=== PATIENT | female | born 1950 | race Caucasian/White ===

== ENCOUNTER 2017-01-29 11:54 | Inpatient (IN) | payer OTHER ==
[~2017-01-29] VITALS: Ht 167.6 cm; Wt 50.0 kg
[2017-01-29] MEDS ORDERED: IPRATROPIUM (NEB) 0.5 MG/2.5 ML AMP INH STA (12:17)
[2017-01-29] MEDS ORDERED: ALBUTEROL 0.5% (NEB) 2.5 MG/0.5 ML AMP INH STA (12:17)
[2017-01-29 12:18] VITALS: TEMP 98.3
[2017-01-29 12:49] LABS: ADD SCAN DIFF NO
[2017-01-29 12:54] LABS: ABNORMAL IP MESSAGE 1; BASOPHILS % 0.1 % (0.0-2.0); HEMATOCRIT 52.4 % (37.0-47.0); HEMOGLOBIN 16.2 g/dl (12.0-16.0); LYMPHOCYTES # 0.3 10^3/ul (0.8-2.9); LYMPHOCYTES % 4.9 % (15.0-51.0); MEAN CORPUSCULAR HEMOGLOBIN 31.2 pg (29.0-33.0); MEAN CORPUSCULAR HGB CONC 30.9 g/dl (32.0-37.0); MEAN PLATELET VOLUME 10.6 fl (7.4-10.4); MONOCYTE # 0.5 10^3/ul (0.3-0.9); MONOCYTES % 7.5 % (0.0-11.0); NEUTROPHIL # 5.9 10^3/ul (1.6-7.5); NEUTROPHILS % 87.1 % (39.0-77.0); NUCLEATED RED BLOOD CELLS # 0.1 10^3/ul (0.0-0.0); PLATELET COUNT 237 10^3/UL (140-415); RED BLOOD COUNT 5.19 10^6/ul (4.20-5.40); WHITE BLOOD COUNT 6.8 10^3/ul (4.8-10.8)
--- NOTE | 2017-01-29 13:04 | RADRPT ---
PROCEDURE: Chest x-ray CLINICAL INDICATION: Shortness of breath TECHNIQUE: Chest single view COMPARISON: None FINDINGS: There is mild cardiomegaly and atherosclerotic aortic calcification. Pulmonary vessels are mildly p rominent. There is more patchy density in the left lower lobe suspicious for an evolving area of pn eumonia. Trace left pleural effusion is seen. Bones are osteopenic. There is ORIF left humerus. IMPRESSION: 1. cardiomegaly with mild interstitial CHF. 2. More patchy dense in the left lower lobe is suspicious for pneumonia. 3. Trace left pleural effusion. 4. Osteopenia. 5. ORIF proximal left humerus RPTAT: HH .Aston Kumar MD, Date Time Electronically viewed and signed by .Aston Kumar MD, on 01/29/2017 13:03 .W/
[2017-01-29 13:18] LABS: AADO2 Arterial 439.5 mmHg (7.0-24.0); Arterial Base Excess 5.5 mmol/L (-3.0-3); Arterial COHb 4.5 % (0.0-3.0); Arterial Fraction of Oxyhgb 94.1 % (93.0-99.0); Arterial MetHb 0.5 % (0.0-1.5); Arterial Total Hemglobin 16.9 g/dl (12.0-18.0); MODE MASK - NRB
[2017-01-29] MEDS ORDERED: LEVOFLOXACIN 750MG/D5W (PMX) 150 ML IVPB ONE (13:30)
[2017-01-29] MEDS ORDERED: BENA10TA48 PO (13:43)
[2017-01-29] MEDS ORDERED: AMLO-147 PO (13:43)
[2017-01-29] MEDS ORDERED: ASPI-664 PO (13:44)
--- NOTE | 2017-01-29 13:49 | RADRPT ---
PROCEDURE: CT Brain without contrast. CLINICAL INDICATION: Trauma. Headache and altered level of consciousness. TECHNIQUE: A CT of the brain without contrast was performed utilizing axial sections from the skul l base through the vertex. The patient was scanned without intravenous contrast enhancement. Sagitta l and coronal reformatted images were obtained using the data from the axial images. Total exam DLP is 634.23 mGy-cm. CTDIvol is 39.49 mGy. One or more of the following dose reduction techniques we re used: Automated exposure control, adjustment of the mA and/or kV according to patient size, use o f iterative reconstruction technique. COMPARISON: None available FINDINGS: There is normal quinn-white matter differentiation. There is mild enlargement of the ventricles and subarachnoid spaces consistent with atrophy. There is decreased attenuation of the periventricular white matter consistent with microangiopathic ischemic change. There is no intracranial hemorrhage or space-occupying lesion. There are vascular calcifications consistent with atherosclerosis. There is no skull fracture or lytic lesion. IMPRESSION: 1. Mild atrophy. 2. Microangiopathic ischemic change. 3. Atherosclerosis. 4. Otherwise unremarkable noncontrast CT scan of the brain. RPTAT: QQ .Yony Carey MD, MD Date Time Electronically viewed and signed by .Yony Carey MD, on 01/29/2017 13:48 .R/
--- NOTE | 2017-01-29 14:22 | ERA ---
ER Documentation Chief Complaint Date/Time DATE: 01/29/17 TIME: 1210 Chief Complaint found by boss at home missing for a few days. altered and confused, HPI 66-year-old female brought to the emergency department by ambulance for confusion. Patient provides little to no insight into her presentation with most of my history available from the paramedics and her friend to confirm history. Patient was last seen normal approximately 3-4 days ago. Since then, she did not show up to work. When she did not show up to work this morning, her boss called and went to her home where she was found confused after an apparent fall. The details or timing of the fall are completely unclear. The paramedics were called immediately thereafter. I have reviewed the limited radiology technician pre-hospital care. Pre-hospital vital signs were reviewed. Pre-hospital diagnostic tests were reviewed. Upon arrival, patient has no insight into her presentation and provides no further history. ROS All systems reviewed and are negative except as per history of present illness. Medications Home Meds Reported Medications Aspirin (Low Dose Aspirin) 81 Mg Tablet.dr, 81 MG PO DAILY, #30 TAB 01/29/17 Benazepril Hcl* (Benazepril Hcl*) 10 Mg Tablet, 10 MG PO DAILY, #30 TAB 01/29/17 Amlodipine Besylate* (Amlodipine Besylate*) 10 Mg Tablet, 10 MG PO DAILY, #30 TAB 01/29/17 Allergies Allergies: Coded Allergies: No Known Allergy (Unverified , 01/29/17) PMhx/Soc Hx Respiratory Disorders: Yes (COPD) Hx Alcohol Use: No Hx Substance Use: No Hx Tobacco Use: No Smoking Status: Never smoker FmHx Unknown at this time Physical Exam Vitals Vital Signs Date Time Temp Pulse Resp B/P Pulse Ox O2 Delivery O2 Flow Rate FiO2 01/29/17 13:50 92 100 60 01/29/17 12:20 Simple Mask 8 01/29/17 12:18 98.3 99 21 123/81 88 Nasal Cannula 6.0 01/29/17 11:59 98.0 51 26 138/83 Physical Exam GENERAL: Patient is an elderly confused appearing female. HEENT: Pupils equal, round, and reactive to light. EOMI. There is no scleral icterus. No obvious head trauma NECK: C-spine is soft and supple, there is no meningismus. There is no cervical lymphadenopathy. LUNGS: Clear to auscultation bilaterally. There are no rales, wheezes or rhonchi. No obvious tachypnea, retractions or use of accessory muscles HEART: Regular rate and rhythm, no murmurs, clicks, rubs or gallops. ABDOMEN: Soft, non-tender, non-distended. There are bowel sounds in all four quadrants. No rebound or guarding. EXTREMITIES: There is no peripheral cyanosis or edema. No focal swelling or erythema. NEURO: Patient is awake alert and follows commands. She has no insight into her presentation. She has a nonfocal cranial nerve, motor and sensory examination SKIN: There is no apparent rash or petechiae. HEME/LYMPHATIC: There is no evidence of excessive bruising or lymphedema. PSYCHIATRIC: The patient does not appear anxious or depressed. Result Diagram: 01/29/17 1215 Results 24 hrs Laboratory Tests Test 01/29/17 12:15 01/29/17 12:17 Basophils # 0.010^3/ul Basophils % 0.1% Eosinophils # 0.010^3/ul Eosinophils % 0.0% Hematocrit 52.4% Hemoglobin 16.2g/dl Lymphocytes # 0.310^3/ul Lymphocytes % 4.9% Mean Corpuscular Hemoglobin 31.2pg Mean Corpuscular Hemoglobin Concent 30.9g/dl Mean Corpuscular Volume 101.0fl Mean Platelet Volume 10.6fl Monocytes # 0.510^3/ul Monocytes % 7.5% Neutrophils # 5.910^3/ul Neutrophils % 87.1% Nucleated Red Blood Cells # 0.110^3/ul Nucleated Red Blood Cells % 1.0/100WBC Platelet Count 29527^3/UL Red Blood Count 5.1910^6/ul Red Cell Distribution Width 15.0% White Blood Count 6.810^3/ul Arterial Blood HCO3 37.0mmol/L Arterial Blood Base Excess 5.5mmol/L Arterial Blood Oxygen Saturation 99.1mmHG Rachid Test N/A Arterial Blood Gas Puncture Site Right Brachial Arterial Blood Carboxyhemoglobin 4.5% Arterial Blood Date Drawn 01/29/2017 1:10:26 PM Arterial Blood Methemoglobin 0.5% Arterial Blood pCO2 (Temp correct) 87.9mmhg Arterial Blood pH (Temp corrected) 7.242 Arterial Blood pO2 (Temp corrected) 185.6mmHG Blood Gas A-a O2 Differential 439.5mmHg Blood Gas Critical Value Read Back DR LIZA Gaitan Blood Gas Modality MASK - NRB Blood Gas Notified Time 01/29/2017 1:18:22 PM Blood Gas Notified Whom JLD Blood Gas Specimen Source Blood arterial Blood Gas Temperature 37.0C FiO2 100.0% Oxyhemoglobin Percent 94.1% Total Hemoglobin 16.9g/dl Current Medications Medications (Trade) Dose Ordered Sig/Latanya Route PRN Reason Start Time Stop Time Status Last Admin Dose Admin Albuterol (Proventil 0.5% (Neb)) 5 mg ONCE STAT INH 01/29/17 12:17 01/29/17 12:19 DC Ipratropium [place] 0.5 mg 0.5 mg ONCE STAT INH 01/29/17 12:17 01/29/17 12:19 DC Levofloxacin/ Dextrose (Levaquin 750 Mg/ D5W 150 ml (Pmx)) 150 ml @ 100 mls/hr ONCE ONCE IVPB 01/29/17 13:30 01/29/17 14:59 Procedures/MDM Patient was taken to a room, seen and evaluated. Comfort measures were initiated. Patient significant hypoxemia was noted and after confirmation with blood gas, patient was placed on BiPAP Diagnostic tests were ordered and reviewed. 3 LEAD RHYTHM STRIP: Normal sinus rhythm without ectopy 12 lead EKG interpreted by myself: Rate/rhythm: Normal sinus rhythm Divide/intervals: Normal Ischemia: Nonspecific ST and T-wave changes with no ST elevation Impression: Nonspecific EKG RADIOLOGY: reviewed with the radiologist CONSULTATION: hospitalist was notified for admission REEVALUATION: After BiPAP was initiated, patient's mental status seemed to improve and her hypoxia was improved as well. Patient remained hemodynamically stable MEDICAL DECISION MAKIN-year-old presents to the emergency department confused. Differential diagnosis entertained was broad and potential high acuity. At this time, patient's clinical examination shows evidence of a hypercarbic encephalopathy. Patient has no definitive pneumonia, but given her high risk, I am covering her with antibiotics. In regards to her fall, the CT scan is ruled out significant intracranial injury. At this time, patient will require admission to the hospital for further non-invasive ventilatory support, following of her blood gases, bronchodilator therapy if needed and further treatment. CRITICAL CARE: Time:>35 minutes Patient has a significant chance of clinical deterioration Treatments/Evaluations: Close monitoring and treatment of unstable vital signs, cardiorespiratory, and neurologic status, while maintaining tight balance of fluid, respiratory, and cardiac interventions. Departure Diagnosis: Primary Impression: Encephalopathy acute Additional Impression: Acute respiratory failure with hypoxia and hypercarbia Condition: Serious SAUNDRA DE JESUS Jan 29, 2017 14:22
[2017-01-29] MEDS ORDERED: DOCUSATE SODIUM 100 MG CAP PO PRN (14:30)
[2017-01-29] MEDS ORDERED: ONDANSETRON 4 MG INJ IV PRN (14:30)
[2017-01-29] MEDS ORDERED: FUROSEMIDE 40 MG INJ IV SCH (14:30)
[2017-01-29] MEDS ORDERED: ALBUTEROL/IPRATROPIUM (NEB) 3 ML AMP HHN PRN (14:30)
[2017-01-29 14:54] LABS: ALBUMIN 3.1 g/dl (3.3-4.9)
[2017-01-29 14:57] LABS: BILIRUBIN,INDIRECT 0.3 mg/dl (0-1.1); BILIRUBIN,TOTAL 0.3 mg/dl (0.2-1.3); CREATININE 0.76 mg/dl (0.44-1.00)
[2017-01-29 14:58] LABS: CALCIUM 7.6 mg/dl (8.4-10.2)
[2017-01-29 15:02] LABS: POTASSIUM 5.3 mmol/L (3.5-5.1)
[2017-01-29 15:03] LABS: ALBUMIN/GLOBULIN RATIO 1.06
[2017-01-29 15:06] LABS: CK-MB 1.48 ng/ml (0.0-2.4)
[2017-01-29 15:09] LABS: TROPONIN-I 0.054 ng/ml (0.00-0.12)
[2017-01-29 15:24] LABS: INR 1.1; PROTIME 14.2 Sec (12.2-14.2); PT RATIO 1.1
[2017-01-29 15:39] VITALS: PULSE 92
[2017-01-29 15:45] VITALS: Ht 167.6 cm; Wt 50.0 kg
[2017-01-29 16:03] VITALS: PULSE 97
[2017-01-29] MEDS: ALBUTEROL/IPRATROPIUM (NEB) 3 ML AMP HHN SCH ×2 (17:00→20:00)
[2017-01-29 17:03] LABS: AADO2 Arterial 203.8 mmHg (7.0-24.0); Allen Test ACCEPTAB; Arterial Base Excess 2.4 mmol/L (-3.0-3); Arterial COHb 3.5 % (0.0-3.0); Arterial Fraction of Oxyhgb 94.8 % (93.0-99.0); Arterial HCO3 31.8 mmol/L (22.0-26.0); Arterial MetHb 0.5 % (0.0-1.5); Arterial Total Hemglobin 16.5 g/dl (12.0-18.0); Blood Gas PS 6; MODE MASK - BIPAP
--- NOTE | 2017-01-29 17:25 | RADRPT ---
Echocardiogram Report Patient Name: MARY WILL Gender: Female Date: 1950 Study Date: 29-Jan-2017 Counter Maker: Location: E Ref. Physician: EARLINE WELLS Quality: Good Procedures: Transthoracic echocardiogram with complete 2D, M-Mode, and doppler examination. Indications: Congestive Heart Failure. 2D/M Mode Doppler Measurement Value Normal Ranges Measurement Value Normal Ranges LVIDd 2D 4.0 3.5 - 5.6 cm AV Peak [place] 1.3 m/sec LVIDs 2D 3.1 2.1 - 4.1 cm AV Peak PG 6.9 mmHg LVPWd 2D 1.0 0.6 - 1.1 cm LVOT Peak [place] 1.0 m/sec IVSd 2D 1.0 0.6 - 1.1 cm LVOT Peak PG 3.7 mmHg AoR Diam 2D 2.0 2.0 - 3.7 cm MV E Peak [place] 0.7 m/sec EDV 2D 72.0 cm3 MV A Peak [place] 0.8 m/sec ESV 2D 30.3 cm3 MV E/A 0.9 MV Decel Time 197 msec MV Decel [place] 3 MV E/A 0.9 TR Peak [place] 3.1 m/sec TR Peak PG 38.9 mmHg Findings Left Ventricle: Normal left ventricular systolic function. Normal left ventricular wall thickness. Ejection fraction is visually estimated at 60 %. Tissue Doppler/Mitral Doppler indices are consistent with impaired relaxation (Stage I diastolic dysfunction). Right Ventricle: Mild enlargement of right ventricle. Mild right ventricular hypokinesis. Left Atrium: Upper limit of normal left atrial size. Right Atrium: There is mild enlargement of right atrium. Mitral Valve: Mild mitral leaflet calcification. Mild mitral annular calcification. Trace mitral regurgitation. Aortic Valve: Trileaflet aortic valve. Trace aortic valve regurgitation. Tricuspid Valve: Tricuspid valve not well visualized. Estimated peak PA systolic pressure 47 mmHg. There is mild tricuspid regurgitation. Pulmonic Valve: Pulmonic valve not well visualized. There is trace pulmonic regurgitation. Pericardium: Normal pericardium with no significant pericardial effusion. Aorta: Normal aortic root. IVC: Inferior vena cava with poor respiratory collapse, however, patient on ventilator. Conclusions 1.Normal left ventricular systolic function. Normal left ventricular wall thickness. Ejection fraction is visually estimated at 60 %. Tissue Doppler/Mitral Doppler indices are consistent with impaired relaxation (Stage I diastolic dysfunction). 2.Mild enlargement of right ventricle. Mild right ventricular hypokinesis. 3.There is mild enlargement of right atrium. 4.Mild mitral leaflet calcification. Mild mitral annular calcification. Trace mitral regurgitation. 5.Trileaflet aortic valve. Trace aortic valve regurgitation. 6.Tricuspid valve not well visualized. Estimated peak PA systolic pressure 47 mmHg. There is mild tricuspid regurgitation. 7.Inferior vena cava with poor respiratory collapse, however, patient on ventilator. Electronically Signed By: Pako Saha 29-Jan-2017 17:24:36 -0800 Patient Name: MARY WILL Study Date: 29-Jan-2017 [id number]
[2017-01-29] MEDS ORDERED: ACETAZOLAMIDE 500 MG INJ IV ONE (17:30)
[2017-01-29 18:45] LABS: PARTIAL THROMBOPLASTIN TIME 24.4 Sec (25.0-35.0)
--- NOTE | 2017-01-29 19:17 | CONS ---
DATE OF ADMISSION: 01/29/2017 DATE OF CONSULTATION: 01/29/2017 TYPE OF CONSULTATION: Cardiology. REFERRING PHYSICIAN: Guera Wells MD REASON FOR CONSULTATION: Congestive heart failure. CHIEF COMPLAINT: Encephalopathy. HISTORY OF PRESENT ILLNESS: Thank you for this referral. History was obtained from the patient who is a fair historian, extensive review of the chart ____ staff. This is a 66-year-old female, histo ry of COPD, hypertension who was brought in by ambulance due to confusion. Apparently the patient a t this point does not know why she is in the hospital. Per record, she was seen normal only a few d ays ago. She did not show up to work. Her boss got worried, came to home and found her confused. Paramedics were called, brought into the emergency room. The patient's chest x-ray has reportedly s hown congestive heart failure for which currently has ____ drip. The patient also hypoxemic, has be en placed on BiPAP and currently breathing better. Denies any chest pain or pressure to me. Denies any palpitations to me. MEDICATIONS AT HOME: Include: 1. Aspirin. 2. Benazepril. 3. Amlodipine. SOCIAL HISTORY: The patient actively smokes. Drinks but denies any heavy alcohol use. Denies any drug abuse. ALLERGIES: NO KNOWN DRUG ALLERGIES. FAMILY HISTORY: No reported early coronary artery disease. REVIEW OF SYSTEMS: She denied all other except for above mentioned. PHYSICAL EXAMINATION: VITAL SIGNS: Temperature 98.3, heart rate of 97, blood pressure 113/79, respiratory rate of 13, sat urating 100% on BiPAP. She was saturating 88% initially. HEENT: Normocephalic, atraumatic. Pupils are equal. CARDIOVASCULAR: Regular rate and rhythm. Systolic murmur. PULMONARY: Mild wheezes heard. No rhonchi. GASTROINTESTINAL: Soft, nontender. EXTREMITIES: Positive lower extremity edema. NEUROLOGIC: Awake and alert, responds appropriately. Oriented to person and place. Does not know the date exactly though. Knows the year and the month though. PSYCHIATRIC: Appeared to be calm and pleasant. DERMATOLOGIC: No active bleeding site. LABORATORY: ABG shows a pH of 7.24 on admission, ____ of 87, pO2 of 185, ____ of 37. Sodium 137, p otassium 5.3, BUN of 43, creatinine 0.74, glucose of 97. CO2 is 35, ALT of 108, AST of 83. ProBNP of 4910. Troponin 0.054. Albumin 3.1. EKG showed normal sinus rhythm. Nonspecific ST-T abnormalities, inferolateral ischemia. Chest x-ray was personally reviewed which showed mild pulmonary vascular congestion, pleural effusio n. Brain CT shows mild atrophy, microangiopathic ischemic changes, otherwise unremarkable. ASSESSMENT AND PLAN: 1. Congestive heart failure, acute on chronic. Most likely this is secondary to diastolic dysfunct ion, currently ____ and mostly right-sided heart failure. 2. Chronic obstructive pulmonary disease exacerbation. 3. Hypercapnic respiratory failure. Currently on BiPAP, improved. 4. Encephalopathy, probably related to hypercapnic respiratory failure, improved now. 5. Severe chronic obstructive pulmonary disease. 6. History of hypertension, currently stable. 7. Hyperkalemia. 8. Azotemia. RECOMMENDATIONS: The patient has been on BiPAP. Remains on IV Lasix. I will discontinue the IV La six and place her on a dose of Diamox. Follow up labs tomorrow. Follow the renal function. Echoca rdiogram will be ordered. Thyroid function has been ordered. Thank you for this referral. Will continue to follow along with you. Dictated By: FRANKLYN HUSAIN MD AV/TAB Conf#: [id number] DID#: [id number] CC: GUERA WELLS MD;*EndCC*
[2017-01-29 19:52] LABS: CK-MB 1.48 ng/ml (0.0-2.4)
[2017-01-29 19:55] LABS: TROPONIN-I 0.08 ng/ml (0.00-0.12)
[2017-01-29 20:47] LABS: AADO2 Arterial 158.1 mmHg (7.0-24.0); Allen Test ACCEPTAB; Arterial Base Excess 8.9 mmol/L (-3.0-3); Arterial COHb 2.3 % (0.0-3.0); Arterial Fraction of Oxyhgb 96.6 % (93.0-99.0); Arterial HCO3 37.6 mmol/L (22.0-26.0); Arterial MetHb 0.5 % (0.0-1.5); Arterial Total Hemglobin 16.4 g/dl (12.0-18.0); Blood Gas IEPAP 20/8; MODE MASK - BIPAP
--- NOTE | 2017-01-29 21:38 | RADRPT ---
PROCEDURE: XR Right Foot CLINICAL INDICATION: Pain TECHNIQUE: AP, oblique, and lateral radiographs were submitted. COMPARISON: None FINDINGS: Osseous structures: appear well mineralized and intact with no fracture or destructive process iden tified. There is calcaneal spurring at the insertion of the plantar aponeurosis. Joint spaces: are well maintained, with no significant spurring, erosion or joint effusion evident. Soft tissues: appear unremarkable. IMPRESSION: 1. Calcaneal spurring at the insertion of the plantar aponeurosis. 2. Otherwise, unremarkable right foot series. Physician Rafi Date Time Electronically viewed and signed by Physician Rafi on 01/29/2017 21:37 /
--- NOTE | 2017-01-29 22:07 | HP ---
DATE OF ADMISSION: 01/29/2017 PRESENTING COMPLAINT: Altered mentation and severe hypoxia. HISTORY OF PRESENTING COMPLAINT: Ms. Love is a 66-year-old female who was brought into the emergency room via EMS after her boss had gone to check on her because she had not been at work for the last 3 days and found her in her home altered and felt she has sustained a fall. At time the patient's initial arrival, she was unable to give any formal history. She was found to be hypoxic in the ED and immediately managed for acute resp failure and started on BiPAP therapy. When I checked on her later, her mentation was much improved , and even though she still remained mildly confused, she was able to tell me that she hadn't been at work for 2 of the 3 days because she was scheduled to have those days off. However, she thought today was still Sunday, and that's why she did not go to work. She thinks she fell, and she knows she hit her head , but she doesn't know how long she was out for, and she doesn't recall the circumstances surrounding her fall. She denies headaches at this time. She denies any form of chest pain. She denies having fever or being sick prior to the fall, but she does complain of a little bit of pain in her R foot. Evaluation of her right foot does show discoloration on the dorsal surface of her foot just in the area around the base of the 2nd through 4th toes. Other than this, she cannot really verbalize any other symptoms. She does note that the BiPAP mask is uncomfortable for her, but understands she requires it based on her last ABG result. PAST MEDICAL HISTORY: According to report is positive only for high blood pressure and COPD, and the patient does endorse being a chronic smoker. SURGICAL HISTORY: Positive for ORIF to left shoulder and her right wrist surgery. ALLERGIES: THE PATIENT HAS NO KNOWN DRUG ALLERGIES. SOCIAL HISTORY: Chronic smoker but she denies illicit drug use. However, documentation notes heavy alcohol use as well. FAMILY HISTORY: Not obtained at this time as the patient remained on the BiPAP mask but is not likely to be contributory. HOME MEDICATIONS: Per report, patient is on amlodipine and 2 other medications which the nurses will try to obtain the names. PHYSICAL EXAMINATION: VITAL SIGNS: Initially when she first came in, her temperature 98.0, pulse 51, respirations 26, blood pressure 138/83. At time of my initial evaluation, temperature 98.3, pulse 99, respirations 21, blood pressure 123/81. Saturations were 88% on nasal cannula at 6 L but improved to 100% via simple mask on BiPAP with an FIO2 of 60%. GENERAL: When I saw the patient, she looked comfortable on BiPAP support. HEENT: Her head was normocephalic. Pupils were equal and reactive. Oral exam was not done due to the BiPAP mask, but patient was oriented, answering questions appropriately most of the time. NECK: Evaluation of head and neck did not reveal JVD. CHEST: Auscultation of her chest wall revealed severely reduced air entry bilaterally without wheezes, but there was some coarseness to her breath sounds. CARDIOVASCULAR: Her heart sounds are S1 and S2. Variable III/ systolic murmur. ABDOMEN: Soft, nontender, nondistended. EXTREMITIES: Lower extremities were negative for edema. As mentioned earlier, discoloration noted on dorsal surface of R foot. While she had mildly reduced pulses, of note were cyanotic changes in the tips of all fingers and toes, likely from chronic tobacco use. LABORATORY VALUES: Hemoglobin was elevated at 16, likely secondary to hemoconcentration from chronic hypoxia, and her MCHC was low. Platelets were normal. She had a neutrophilia of 87%. Her initial ABG: pH was 7.2, CO2 was at 7.9, O2 was 185, and bicarbonate was low. IMAGING: Head CT showed mild atrophy with microangiopathic ischemic changes as well as atherosclerosis. Chest x-ray showed cardiomegaly, CHF, probable left lower lobe pneumonia, trace left pleural effusion, osteopenia and evidence of ORIF of the proximal left shoulder ASSESSMENT: A 66-year-old female who was found at home altered status post fall for unknown period of time and managed as follows: 1. Hypoxic encephalopathy secondary to #2. 2. Acute hypoxic and hypercapnic respiratory failure with respiratory acidosis , on bilevel positive airway pressure therapy. 3. 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 4. Probable acute left lower lobe pneumonia. 5. Evidence of congestive heart failure on chest x-ray. 6. ____. 7. Chronic tobacco use with probable chronic obstructive pulmonary disease exacerbation. 8. Chronic osteopenia. 9. Report of heavy alcohol use. 10. Probable R foot injury, rule out acute fracture. 11. Left peripheral vascular disease. PLAN: Admit the patient currently to the intensive care unit because she is at risk of acute decompensation. Complete an ACS rule-out, get a 2D echo, pulmonary consult as well as cardiology consult. Empiric antibiotics have been instituted. Continued with gentle diuresis and then we will try to wean her off BiPAP therapy as comfortably as possible. I will also institute both inhaled and intravenous steroids at a low dose, and further interventions will depend on our clinical findings. Blood as well as urine cultures have been obtained. The patient will likely benefit from MRI of the brain, but there was no acute ischemic event that caused the disorientation and probable fall. She will also benefit from an x-ray of her R foot to rule out any fractures down there. I've spoken to her in detail. I'm not sure how much she understands. I have asked and answered questions. Further information and interventions will depend on her clinical findings. Evaluation time / Critical care time was more than 50 minutes. Dictated By: EARLINE WELLS MD, BA/TAB Conf#: [id number] DID#: [id number]
[2017-01-29] MEDS: CEFEPIME 1GM/50 ML (PMX) 50 ML IVPB SCH (22:30)
[2017-01-29] MEDS: FAMOTIDINE 20 MG INJ IV SCH (22:30)
[2017-01-29 23:15] VITALS: BP 109/67; PULSE 98; RESP 14
[2017-01-29 23:24] VITALS: PULSE 89
[2017-01-30] VITALS (23 sets, daily range): BP systolic 79–118; BP diastolic 54–81; PULSE 76–106; RESP 12–20
[2017-01-30] MEDS: ALBUTEROL/IPRATROPIUM (NEB) 3 ML AMP HHN SCH ×6 (00:57→20:38)
[2017-01-30 01:31] LABS: CK-MB 1.07 ng/ml (0.0-2.4)
[2017-01-30 01:35] LABS: TROPONIN-I 0.074 ng/ml (0.00-0.12)
[2017-01-30 04:53] LABS: ADD SCAN DIFF NO
[2017-01-30 05:05] LABS: BASOPHILS % 0.2 % (0.0-2.0); EOSINOPHILS % 0.2 % (0.0-7.0); HEMATOCRIT 47.5 % (37.0-47.0); HEMOGLOBIN 14.4 g/dl (12.0-16.0); LYMPHOCYTES # 0.9 10^3/ul (0.8-2.9); LYMPHOCYTES % 15.5 % (15.0-51.0); MEAN CORPUSCULAR HEMOGLOBIN 30.6 pg (29.0-33.0); MEAN CORPUSCULAR HGB CONC 30.3 g/dl (32.0-37.0); MEAN CORPUSCULAR VOLUME 100.8 fl (82.0-101.0); MEAN PLATELET VOLUME 10.6 fl (7.4-10.4); MONOCYTE # 0.5 10^3/ul (0.3-0.9); MONOCYTES % 9.1 % (0.0-11.0); NEUTROPHIL # 4.2 10^3/ul (1.6-7.5); NEUTROPHILS % 74.8 % (39.0-77.0); NUCLEATED RED BLOOD CELLS% 0.5 /100WBC (0.0-0.0); PLATELET COUNT 177 10^3/UL (140-415); RED BLOOD COUNT 4.71 10^6/ul (4.20-5.40); RED CELL DISTRIBUTION WIDTH 14.7 % (11.5-14.5); WHITE BLOOD COUNT 5.6 10^3/ul (4.8-10.8)
[2017-01-30 06:12] LABS: POTASSIUM 3.9 mmol/L (3.5-5.1)
[2017-01-30 06:15] LABS: CREATININE 0.88 mg/dl (0.44-1.00)
[2017-01-30 06:16] LABS: CALCIUM 8.1 mg/dl (8.4-10.2); CHOL/HDL RATIO 3.9 RATIO; MAGNESIUM 1.9 mg/dl (1.7-2.5)
[2017-01-30 06:30] LABS: IRON 17 ug/dl (35-150)
[2017-01-30 06:40] LABS: TOTAL IRON BINDING CAPACITY 358 ug/dl (241-421)
[2017-01-30 06:42] LABS: THYROID STIMULATING HORMONE 2.17 MIU/L (0.465-4.680)
[2017-01-30 08:48] LABS: AADO2 Arterial 107.4 mmHg (7.0-24.0); Allen Test ACCEPTAB; Arterial Base Excess 8.4 mmol/L (-3.0-3); Arterial COHb 1.5 % (0.0-3.0); Arterial Fraction of Oxyhgb 56.5 % (93.0-99.0); Arterial HCO3 38.8 mmol/L (22.0-26.0); Arterial MetHb 0.2 % (0.0-1.5); Arterial Total Hemglobin 16.1 g/dl (12.0-18.0); MODE NASAL CANNULA
[2017-01-30] MEDS: ASPIRIN (EC) 81 MG TAB PO SCH (09:00)
[2017-01-30] MEDS ORDERED: BENAZEPRIL 10 MG TAB PO SCH (09:00)
[2017-01-30] MEDS ORDERED: AMLODIPINE 10 MG TAB PO SCH (09:00)
[2017-01-30] MEDS: FAMOTIDINE 20 MG INJ IV SCH ×2 (09:05→20:48)
[2017-01-30] MEDS: CEFEPIME 1GM/50 ML (PMX) 50 ML IVPB SCH ×2 (10:00→20:49)
[2017-01-30] MEDS ORDERED: ACETAZOLAMIDE 500 MG INJ IV SCH (12:15)
--- NOTE | 2017-01-30 12:30 | PN ---
DATE: 01/30/2017 CARDIOLOGY FOLLOWUP SUBJECTIVE: The patient with no chest pain or pressure. Breathing has improved. She did have mild shortness of breath. There were no palpitations. MEDICATIONS: Reviewed as per medical reconciliation, personally reviewed. PHYSICAL EXAMINATION: VITAL SIGNS: Temperature 98.8, heart rate of 88, blood pressure 108/55, respiration rate of 18, sat urating 96%. HEENT: Normocephalic, atraumatic. Pupils equal and round. CARDIOVASCULAR: Regular rate and rhythm, systolic murmur. PULMONARY: With mild rhonchi and wheezes. GASTROINTESTINAL: Soft, nontender. EXTREMITIES: Positive edema. NEUROLOGIC: Awake, responds appropriately. PSYCHIATRIC: Appears to be calm. LABORATORY: WBC of 5.6, hemoglobin 14.4, platelets of 177. Sodium 138, potassium 3.9, BUN of 30, c reatinine 0.88, glucose of 81, CO2 is 40. ProBNP of 3350. LDL is 43, HDL of 20. ASSESSMENT AND PLAN: 1. Chronic obstructive pulmonary disease exacerbation. 2. Possible mild congestive heart failure secondary to diastolic dysfunction, heart failure. 3. Severe hypercapnic respiratory failure, currently improved. Currently, off of BiPAP. 4. Hypertension, currently stable. 5. Electrolyte abnormality, hyperkalemia. 6. Dyslipidemia. RECOMMENDATIONS: I will discontinue the amlodipine. I will give the patient a dose of Diamox. [facility] pulmonary consultation. Dictated By: FRANKLYN HUSAIN MD AV/TAB Conf#: [id number] DID#: [id number] CC: EARLINE WELLS MD;*EndCC*
[2017-01-30 16:49] LABS: AADO2 Arterial 207.1 mmHg (7.0-24.0); Allen Test ACCEPTAB; Arterial Base Excess 8.2 mmol/L (-3.0-3); Arterial COHb 1.1 % (0.0-3.0); Arterial Fraction of Oxyhgb 97.6 % (93.0-99.0); Arterial HCO3 34.9 mmol/L (22.0-26.0); Arterial MetHb 0.4 % (0.0-1.5); Arterial Total Hemglobin 15.6 g/dl (12.0-18.0); Blood Gas IEPAP 16/8; Blood Gas PS 8; MODE MASK - BIPAP
--- NOTE | 2017-01-30 17:47 | PN ---
Date/Time of Note Date/Time of Note DATE: 01/30/17 TIME: 17:43 Assessment/Plan VTE Prophylaxis VTE Prophylaxis Intervention: LMWH Lines/Catheters IV Catheter Type (from [facility]): Saline Lock Urinary Cath still in place: No Assessment/Plan Assessment/Plan 1. Hypoxic encephalopathy secondary to #2 : improved 2. Acute hypoxic and hypercapnic respiratory failure with respiratory acidosis, on bilevel positive airway pressure therapy 3. 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 4. Probable acute left lower lobe pneumonia. 5. Congestive heart failure acute diastolic with preserved EF 6. Chronic tobacco use with Chronic obstructive pulmonary disease exacerbation. 7. Chronic osteopenia. 8. Probable PVD 9. Report of heavy alcohol use. 10. L foot pain w/out fracture PLAN: Appreciate cardio input / continue gentle diuresis Pulm consult pending / continue bronchodilator therapy / ?chest CT Continue empiric levaquin Continue to wean bipap F/u MRI findings Supportive care PROPHYLAXIS: Pepcid / lovenox CRITICAL CARE TIME: >35 mins Subjective 24 Hr Interval Summary Free Text/Dictation Patient seen Failed bipap weaning earlier, comfortable on bipap however Exam/Review of Systems Vital Signs Vitals Vital Signs Date Time Temp Pulse Resp B/P Pulse Ox O2 Delivery O2 Flow Rate FiO2 01/30/17 17:04 18 60 01/30/17 16:59 Nasal Cannula 4.0 01/30/17 16:07 80 01/30/17 15:43 98.0 90/54 97 Intake and Output 01/29/17 01/29/17 01/30/17 14:59 22:59 06:59 Intake Total 50 ml Output Total 0 ml Balance 0 ml 50 ml Exam Constitutional: alert, oriented, No distress Head: normocephalic Eyes: PERRL ENMT: other (bipap mask in place) Neck: supple Respiratory: clear to auscultation, diminished breath sounds Cardiovascular: regular rate and rhythm, No murmurs/extra sounds Gastrointestinal: non-tender, soft Extremities: cyanosis, edema Neurological: nl mental status, No confused, No lethargic Results Result Diagram: 01/30/17 0425 01/30/17 0420 Results 24 hrs Laboratory Tests Test 01/29/17 19:20 01/29/17 19:39 01/30/17 01:00 3/7/17 04:20 Creatine Kinase 90 55 Creatine Kinase Index 1.6 1.9 Creatinine Kinase MB (Mass) 1.48 1.07 Troponin I 0.080 0.074 Arterial Blood HCO3 37.6 H Arterial Blood Base Excess 8.9 H Arterial Blood Oxygen Saturation 99.4 H Rachid Test ACCEPTAB Arterial Blood Gas Puncture Site Left Radial Arterial Blood Carboxyhemoglobin 2.3 Arterial Blood Date Drawn 01/29/2017 8:40:27 PM Arterial Blood Methemoglobin 0.5 Arterial Blood pCO2 (Temp correct) 67.7 H Arterial Blood pH (Temp corrected) 7.362 Arterial Blood pO2 (Temp corrected) 195.2 H Blood Gas A-a O2 Differential 158.1 H Blood Gas Actual Respiration Rate 19 Blood Gas IPAP/EPAP Ratio 20/8 Blood Gas Modality MASK - BIPAP Blood Gas Notified Time 01/29/2017 8:47:02 PM Blood Gas Notified Whom BR Blood Gas Respiration Rate 16.0 Blood Gas Specimen Source Blood arterial Blood Gas Temperature 37.0 Blood Gas Tidal Volume 741.0 FiO2 60.0 Oxyhemoglobin Percent 96.6 Total Hemoglobin 16.4 Anion Gap 10 Blood Urea Nitrogen 30 #H Calcium Level 8.1 L Carbon Dioxide Level 40 H Chloride Level 92 L Cholesterol Level 78 L Cholesterol/HDL Ratio 3.9 Creatinine 0.88 Glucose Level 81 HDL Cholesterol 20 L LDL Cholesterol, Calculated 43 Magnesium Level 1.9 Potassium Level 3.9 Sodium Level 138 Thyroid Stimulating Hormone (TSH) 2.170 Triglycerides Level 74 Test 01/30/17 04:25 01/30/17 07:00 01/30/17 16:00 B-Type Natriuretic Peptide 3350 H Basophils # 0.0 Basophils % 0.2 Eosinophils # 0.0 Eosinophils % 0.2 Free Thyroxine 1.16 Hematocrit 47.5 H Hemoglobin 14.4 Hemoglobin A1c 5.6 Iron Level 17 L Lymphocytes # 0.9 Lymphocytes % 15.5 Mean Corpuscular Hemoglobin 30.6 Mean Corpuscular Hemoglobin Concent 30.3 L Mean Corpuscular Volume 100.8 Mean Platelet Volume 10.6 H Monocytes # 0.5 Monocytes % 9.1 Neutrophils # 4.2 Neutrophils % 74.8 Nucleated Red Blood Cells # 0.0 Nucleated Red Blood Cells % 0.5 H Percent Iron Saturation 5 L Platelet Count 177 # Red Blood Count 4.71 Red Cell Distribution Width 14.7 H Total Iron Binding Capacity 358 White Blood Count 5.6 Arterial Blood HCO3 38.8 H 34.9 H Arterial Blood Base Excess 8.4 H 8.2 H Arterial Blood Oxygen Saturation 57.5 L 99.1 H Rachid Test ACCEPTAB ACCEPTAB Arterial Blood Gas Puncture Site LB Left Radial Arterial Blood Carboxyhemoglobin 1.5 1.1 Arterial Blood Date Drawn 01/30/2017 8:30:09 AM 01/30/2017 4:35:00 PM Arterial Blood Methemoglobin 0.2 0.4 Arterial Blood pCO2 (Temp correct) 80.8 *H 55.5 H Arterial Blood pH (Temp corrected) 7.299 *L 7.416 Arterial Blood pO2 (Temp corrected) 33.6 *L 159.7 H Blood Gas A-a O2 Differential 107.4 H 207.1 H Blood Gas Critical Value Read Back L ROMAINE SAHU Blood Gas Modality NASAL CANNULA MASK - BIPAP Blood Gas Notified Time 01/30/2017 8:45:36 AM 01/30/2017 4:49:19 PM Blood Gas Notified Whom ESPINOZA MCINTYRE Blood Gas Specimen Source Blood arterial Blood arterial Blood Gas Temperature 37.0 37.0 FiO2 33.0 60.0 Oxyhemoglobin Percent 56.5 L 97.6 Total Hemoglobin 16.1 15.6 Blood Gas Actual Respiration Rate 21 Blood Gas IPAP/EPAP Ratio 16/8 Blood Gas Pressure Support 8 Blood Gas Respiration Rate 20.0 Medications Medications Current Medications Ondansetron HCl (Zofran Inj) 4 mg Q6H PRN IV NAUSEA AND/OR VOMITING; Start 01/29 at 14:30 Docusate Sodium (Colace) 100 mg BID PRN PO CONSTIPATION; Start 01/29/17 at 14:30 Famotidine 20 mg 20 mg BID IV Last administered on 01/30/17 09:05; Admin Dose 20 MG; Start 01/29/17 at 21:00 Cefepime HCl (Maxipime 1gm/50 ml (Pmx)) 50 ml @ 100 mls/hr Q12 IVPB Last administered on 01/30/17 10:00; Admin Dose 100 MLS/HR; Start 01/29/17 at 21:00 Amlodipine Besylate (Norvasc) 10 mg DAILY PO ; Start 01/30/17 at 09:00 Aspirin (Halfprin) 81 mg DAILY PO ; Start 01/30/17 at 09:00 Benazepril HCl (Lotensin) 10 mg DAILY PO ; Start 01/30/17 at 09:00 Procedures Procedures PROCEDURE: XR Right Foot CLINICAL INDICATION: Pain TECHNIQUE: AP, oblique, and lateral radiographs were submitted. COMPARISON: None FINDINGS: Osseous structures: appear well mineralized and intact with no fracture or destructive process identified. There is calcaneal spurring at the insertion of the plantar aponeurosis. Joint spaces: are well maintained, with no significant spurring, erosion or joint effusion evident. Soft tissues: appear unremarkable. IMPRESSION: 1. Calcaneal spurring at the insertion of the plantar aponeurosis. 2. Otherwise, unremarkable right foot series. Reji Mark Physician Date Time Electronically viewed and signed by Reji Mark Physician on 01/29/2017 21:37 PROCEDURE: Chest x-ray CLINICAL INDICATION: Shortness of breath TECHNIQUE: Chest single view COMPARISON: None FINDINGS: There is mild cardiomegaly and atherosclerotic aortic calcification. Pulmonary vessels are mildly prominent. There is more patchy density in the left lower lobe suspicious for an evolving area of pneumonia. Trace left pleural effusion is seen. Bones are osteopenic. There is ORIF left humerus. IMPRESSION: 1. cardiomegaly with mild interstitial CHF. 2. More patchy dense in the left lower lobe is suspicious for pneumonia. 3. Trace left pleural effusion. 4. Osteopenia. 5. ORIF proximal left humerus RPTAT: HH .Aston Kumar MD, MD Date Time Electronically viewed and signed by .Aston Kumar MD, MD on 01/29/2017 13:03 .W/ CC: SAUNDRA DE JESUS BOLATITO M. Jan 30, 2017 17:47
[2017-01-30] MEDS ORDERED: SOD CHLORIDE 0.9% 100 ML ONE (18:52)
[2017-01-30] MEDS ORDERED: IOHEXOL 300MG/ML 150 ML BTL ONE (18:52)
--- NOTE | 2017-01-30 20:30 | RADRPT ---
PROCEDURE: XR Chest. CLINICAL INDICATION: Shortness of breath TECHNIQUE: Single frontal view of the chest was obtained. COMPARISON: 01/29/2017 FINDINGS: The cardiomediastinal silhouette is normal size. Pulmonary vasculature is within normal limits. Th ere is lung hyperinflation. There is a likely small left pleural effusion. There is hazy increased density at the right base. There is no pneumothorax.. The osseous structures and soft tissues are unremarkable. IMPRESSION: 1. Lung hyperinflation consistent with COPD. 2. Likely small left pleural effusion. 3. Right lower lung atelectasis, versus minimal infiltrate. 4. Improved pulmonary vascular congestion. RPTAT: HBST .Artemio Gomez MD, MD Date Time Electronically viewed and signed by .Artemio Gomez MD, on 01/30/2017 20:30 .T/
[2017-01-30] MEDS: DOCUSATE SODIUM 100 MG CAP PO SCH (20:48)
[2017-01-30] MEDS: SOD FERRIC GLUC COMPLX 125 MG in SOD CHLORIDE 0.9% 100 ML IVPB SCH (20:48)
--- NOTE | 2017-01-30 20:48 | RADRPT ---
PROCEDURE: MR Brain without contrast. CLINICAL INDICATION: Confusion. Evaluate for CVA. TECHNIQUE: An MRI of the brain was performed on a 1.5 harriet scanner utilizing the following sequen dyana: Sagittal T1 weighted, axial T2 weighted, axial FLAIR, coronal GRE, and axial diffusion weighted with ADC mapping. COMPARISON: None FINDINGS: Restricted effusion and associated T2 signal hyperintensity consistent with bilateral watershed dist ribution infarcts .. There is no evidence of intracranial hemorrhage, mass effect, or midline shift . No extra-axial fluid collections are seen. No hypointense signal abnormalities are seen on the GRE images to suggest the presence of blood degr adation products. Extensive patchy and confluent T2 signal hyperintensity throughout the deep white matter and barbra co mpatible with sequelae of chronic microvascular ischemic changes. Mild generalized central cerebral and cerebellar volume loss. The posterior fossa contents, brainstem, seventh - eighth cranial nerve complexes, pituitary axis, o rbits, paranasal sinuses, and left mastoid air cells are unremarkable. Fluid signal within the right mastoid air cells compatible with retained secretions or inflammatory change. Normal flow voids are visible in the proximal intracranial arteries and dural sinuses, indicating pa tency. IMPRESSION: 1. Extensive restricted diffusion and no associated T2 signal hyperintensity consistent with bilater al watershed distribution acute/subacute ischemic infarct. 2. No intracranial hemorrhage, mass effect, or shift. 3. Extensive chronic microvascular ischemic changes in the deep white matter and mild generalized c entral cerebellar and cerebral volume loss. RPTAT:AAJJ Physician Gabriella Date Time Electronically viewed and signed by Physician Gabriella on 01/30/2017 20:47 ORTIZ/
[2017-01-31] VITALS (23 sets, daily range): BP systolic 95–115; BP diastolic 57–70; PULSE 75–93; RESP 15–20
[2017-01-31] MEDS: ALBUTEROL/IPRATROPIUM (NEB) 3 ML AMP HHN SCH ×4 (00:53→13:43)
--- NOTE | 2017-01-31 02:55 | RADRPT ---
PROCEDURE: CT Chest with contrast. CLINICAL INDICATION: Respiratory failure. TECHNIQUE: CT scan of the chest with contrast was performed on a multidetector high-resolution CT scanner. The patient was scanned following the uncomplicated intravenous administration of 100 cc o f Omnipaque-300 contrast. Coronal and sagittal reformatted images were obtained from the axial sour ce images. Images were reviewed on a high-resolution PACS workstation. The total exam CTDI equals 4. 89 mGy and the total exam DLP equals 206.23 mGy-cm. COMPARISON: None available FINDINGS: Bilateral small pleural effusions with compressive atelectasis at the lung bases. Hyperinflation of COPD and moderate to severe changes of centrolobular emphysema. Lungs otherwise substantially xavier r. Cardiomegaly. The mediastinum is unremarkable without evidence for mass or lymphadenopathy. The vascular structur es of the mediastinum are normal in course and caliber. Aortic vascular calcifications and coronary artery calcifications are present. The heart size is normal without evidence for pericardial thick ening or effusion. The axillary regions, subpectoral regions, and supraclavicular regions are all unremarkable. The ricky rounding chest wall is unremarkable. Imaging obtained through the upper abdomen reveals retroperiton eal fluid of the pancreas and small amount of fluid over the liver hand spleen. Findings may repres ent a manifestation of pancreatitis. The surrounding osseous structures are remarkable for an anterior wedge fracture deformity L1 loss o f about 40 50% anterior and central height. There is mild retropulsion of the posterior-superior ma rgin of the vertebral body resulting at least mild spinal stenosis at this level. These findings ar e otherwise age indeterminate. No osteolytic or osteoblastic lesion is detected. IMPRESSION: 1. Bilateral small pleural effusions with compressive atelectasis at the lung bases. 2. Hyperinflation of COPD and moderate to severe changes of centrolobular emphysema. 3. Age indeterminate anterior wedge fracture deformity at L1 with retropulsed fragment resulting in at least mild spinal stenosis. 4. Retroperitoneal fluid over the pancreas, possibly representing manifestation of pancreatitis. 5. Small amount of fluid is also seen over the liver and spleen. RPTAT: UU Reji Stefrankie, Physician Date Time Electronically viewed and signed by Reji Osullivan Physician on 01/31/2017 02:54 RS/
[2017-01-31 06:02] LABS: AADO2 Arterial 201.6 mmHg (7.0-24.0); Allen Test ACCEPTAB; Arterial Base Excess 4.9 mmol/L (-3.0-3); Arterial COHb 0.9 % (0.0-3.0); Arterial Fraction of Oxyhgb 97.9 % (93.0-99.0); Arterial HCO3 32.3 mmol/L (22.0-26.0); Arterial MetHb 0.5 % (0.0-1.5); Arterial Total Hemglobin 15.5 g/dl (12.0-18.0); Blood Gas IEPAP 20/8; MODE MASK - BIPAP
[2017-01-31 07:19] LABS: ALBUMIN 2.7 g/dl (3.3-4.9); POTASSIUM 3.5 mmol/L (3.5-5.1)
[2017-01-31 07:21] LABS: CREATININE 0.71 mg/dl (0.44-1.00)
[2017-01-31 07:22] LABS: BILIRUBIN,INDIRECT 0.3 mg/dl (0-1.1); BILIRUBIN,TOTAL 0.3 mg/dl (0.2-1.3); CALCIUM 8.4 mg/dl (8.4-10.2); TOTAL PROTEIN 5.4 g/dl (6.1-8.1)
[2017-01-31 08:54] LABS: ADD SCAN DIFF NO
[2017-01-31] MEDS: ENOXAPARIN 30 MG/0.3 ML SYG SC SCH (09:01)
[2017-01-31] MEDS: CEFEPIME 1GM/50 ML (PMX) 50 ML IVPB SCH ×2 (09:02→22:30)
[2017-01-31] MEDS: FAMOTIDINE 20 MG INJ IV SCH (09:02)
[2017-01-31] MEDS: DOCUSATE SODIUM 100 MG CAP PO SCH ×2 (09:02→20:08)
[2017-01-31] MEDS: ASPIRIN (EC) 81 MG TAB PO SCH (09:02)
[2017-01-31 09:42] LABS: BASOPHILS % 0.2 % (0.0-2.0); EOSINOPHILS % 0.4 % (0.0-7.0); HEMOGLOBIN 14.6 g/dl (12.0-16.0); LYMPHOCYTES # 0.7 10^3/ul (0.8-2.9); LYMPHOCYTES % 11.6 % (15.0-51.0); MEAN CORPUSCULAR HEMOGLOBIN 30.9 pg (29.0-33.0); MEAN CORPUSCULAR HGB CONC 31.1 g/dl (32.0-37.0); MEAN CORPUSCULAR VOLUME 99.6 fl (82.0-101.0); MEAN PLATELET VOLUME 10.9 fl (7.4-10.4); MONOCYTE # 0.5 10^3/ul (0.3-0.9); MONOCYTES % 8.8 % (0.0-11.0); NEUTROPHIL # 4.4 10^3/ul (1.6-7.5); PLATELET COUNT 161 10^3/UL (140-415); RED BLOOD COUNT 4.72 10^6/ul (4.20-5.40); WHITE BLOOD COUNT 5.6 10^3/ul (4.8-10.8)
--- NOTE | 2017-01-31 14:03 | CONS ---
Date/Time of Note Date/Time of Note DATE: 01/31/17 TIME: 13:59 Assessment/Plan Assessment/Plan Additional Assessment/Plan Assessment and recommendations; 1. Patient admitted for COPD exacerbation with with acute bronchitis. 2. CT scan of chest showing small bilateral pleural effusions. 3. Hypercapnic/hypoxemic respiratory failure with marked clinical improvement. 4. History of hypertension. Patient is doing very well at this point I would recommend discharging her home. Patient would benefit from either Z-Ramiro or Levaquin to be used at least for 5 days in conjunction with a Medrol Dosepak. She should have a full PFT done as an outpatient basis. Also we need to have ambulatory pulse oximetry done to rule out exertional hypoxemia. Smoking cessation was urged to the patient. Consultation Date/Type/Reason Admit Date/Time Jan 29, 2017 at 14:08 Date of Consultation: Jan 31, 2017 Type of Consultation: Pulmonary Reason for Consultation Pulmonary consultation requested for evaluation of severe COPD. History of present illness; patient is a very pleasant 66-year-old white lady who was admitted on the sixth of this month brought in by ambulance after the patient was found confused by her boss upon evaluation here the patient was diagnosed with COPD exacerbation as well as hypercapnic respiratory failure. The patient has been on BiPAP with marked overall clinical improvement. Patient wants to go home now denies any coughing, wheezing sputum production any chest pain. Cording to the patient she never had this kind of episode before. Past medical history; 1. COPD. 2. Hypertension. 3. No other medical illnesses. Medications; were reviewed. Allergies; none. Social history; she still smokes about half a pack a day. Most of alcohol or drug abuse. Family history; patient is . She had 1 son who . Occupational history; patient works for an [employer]. Review of systems; denies any headache, visual changes. Any seizures. Any sinus symptoms. Denies any postnasal drip. Denies any dysphagia, odynophagia or sore throat. Any fever or chills. Denies any chest pain, angina. Patient does complain of chronic dyspnea on exertion. Denies any use of medications at home for COPD. Denies any acid reflux. Any abdominal pain, nausea, vomiting. Denies any melena, hematochezia. Denies any weight loss. General exam; elderly lady, awake alert currently in no distress. Social History Smoking Status: Current every day smoker Exam/Review of Systems Vital Signs Vitals Vital Signs Date Time Temp Pulse Resp B/P Pulse Ox O2 Delivery O2 Flow Rate FiO2 01/31/17 12:11 84 01/31/17 11:33 99 60 01/31/17 11:29 99.0 20 108/70 01/30/17 21:00 Nasal Cannula 4.0 Intake and Output 01/30/17 01/30/17 01/31/17 15:00 23:00 07:00 Intake Total 400 ml 300 ml Balance 400 ml 300 ml Exam HEENT examination; supple neck, no JVD. No lymphadenopathy. Midline trachea. No thyromegaly. Pharynx is clear. Patient is edentulous and wears dentures. Pupils are midsize and reactive to light bilaterally. Extra ocular movements are intact. Chest examination; diminished breath sounds throughout without any added sounds. S1-S2 audible, no murmurs. Regular rhythm. Abdomen examination; soft, nondistended. No organomegaly. Nontender. Bowel sounds audible. Extremity examination; no peripheral edema. Pulses 2+ bilaterally. No clubbing. [employer]W [employer]ER examination; cranial nerves are grossly intact. No motor deficit. Results Result Diagram: 01/31/17 0608 01/31/17 0608 Results 24 hrs Laboratory Tests Test 01/30/17 16:00 01/31/17 06:00 01/31/17 06:08 Arterial Blood HCO3 34.9 H 32.3 H Arterial Blood Base Excess 8.2 H 4.9 H Arterial Blood Oxygen Saturation 99.1 H 99.3 H Rachid Test ACCEPTAB ACCEPTAB Arterial Blood Gas Puncture Site Left Radial Left Radial Arterial Blood Carboxyhemoglobin 1.1 0.9 Arterial Blood Date Drawn 01/30/2017 4:35:00 PM 01/31/2017 5:55:10 AM Arterial Blood Methemoglobin 0.4 0.5 Arterial Blood pCO2 (Temp correct) 55.5 H 58.7 H Arterial Blood pH (Temp corrected) 7.416 7.358 Arterial Blood pO2 (Temp corrected) 159.7 H 161.6 H Blood Gas A-a O2 Differential 207.1 H 201.6 H Blood Gas Actual Respiration Rate 21 17 Blood Gas IPAP/EPAP Ratio 11/07 15/07 Blood Gas Modality MASK - BIPAP MASK - BIPAP Blood Gas Notified Time 01/30/2017 4:49:19 PM 01/31/2017 6:02:40 AM Blood Gas Notified Whom AC Blood Gas Pressure Support 8 Blood Gas Respiration Rate 20.0 16.0 Blood Gas Specimen Source Blood arterial Blood arterial Blood Gas Temperature 37.0 37.0 FiO2 60.0 60.0 Oxyhemoglobin Percent 97.6 97.9 Total Hemoglobin 15.6 15.5 Alanine Aminotransferase (ALT/SGPT) 73 H Albumin 2.7 L Albumin/Globulin Ratio 1.00 Alkaline Phosphatase 52 Anion Gap 10 Aspartate Amino Transf (AST/SGOT) 27 B-Type Natriuretic Peptide 1380 H Basophils # 0.0 Basophils % 0.2 Blood Urea Nitrogen 19 # Calcium Level 8.4 Carbon Dioxide Level 35 H Chloride Level 98 Creatinine 0.71 Direct Bilirubin 0.00 Eosinophils # 0.0 Eosinophils % 0.4 Globulin 2.70 Glucose Level 83 Hematocrit 47.0 Hemoglobin 14.6 Indirect Bilirubin 0.3 Lymphocytes # 0.7 L Lymphocytes % 11.6 L Magnesium Level 2.0 Mean Corpuscular Hemoglobin 30.9 Mean Corpuscular Hemoglobin Concent 31.1 L Mean Corpuscular Volume 99.6 Mean Platelet Volume 10.9 H Monocytes # 0.5 Monocytes % 8.8 Neutrophils # 4.4 Neutrophils % 79.0 H Nucleated Red Blood Cells # 0.0 Nucleated Red Blood Cells % 0.0 Platelet Count 161 Potassium Level 3.5 Red Blood Count 4.72 Red Cell Distribution Width 15.0 H Sodium Level 139 Total Bilirubin 0.3 Total Protein 5.4 L White Blood Count 5.6 Medications Medications Current Medications Ondansetron HCl (Zofran Inj) 4 mg Q6H PRN IV NAUSEA AND/OR VOMITING; Start 01/29 at 14:30 Famotidine 20 mg 20 mg BID IV Last administered on 01/31/17 09:02; Admin Dose 20 MG; Start 01/29/17 at 21:00 Cefepime HCl (Maxipime 1gm/50 ml (Pmx)) 50 ml @ 100 mls/hr Q12 IVPB Last administered on 01/31/17 09:02; Admin Dose 100 MLS/HR; Start 01/29/17 at 21:00 Aspirin (Halfprin) 81 mg DAILY PO Last administered on 01/31/17 09:02; Admin Dose 81 MG; Start 01/30/17 at 09:00 Enoxaparin Sodium 30 mg 30 mg DAILY SC Last administered on 01/31/17 09:01; Admin Dose 30 MG; Start 01/31/17 at 09:00 Ferric Sodium Gluconate Complex/ Sodium Chloride (Ferrlecit/NS) 110 ml @ 100 mls/hr Q24H IVPB Last administered on 01/30/17 20:48; Admin Dose 100 MLS/HR; Start 01/30/17 at 20:00; Stop 02/01/17 at 21:05 Docusate Sodium (Colace) 100 mg BID PO Last administered on 01/31/17 09:02; Admin Dose 100 MG; Start 01/30/17 at 21:00 OFELIA PINA Jan 31, 2017 14:03
--- NOTE | 2017-01-31 17:09 | PN ---
Date/Time of Note Date/Time of Note DATE: 01/31/17 TIME: 16:58 Assessment/Plan VTE Prophylaxis VTE Prophylaxis Intervention: LMWH Lines/Catheters IV Catheter Type (from Nrs): Saline Lock Urinary Cath still in place: No Assessment/Plan Assessment/Plan 1. Hypoxic encephalopathy secondary to #2 : improved 2. Acute hypoxic and hypercapnic respiratory failure with respiratory acidosiss/p bipap: improved 3. 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 4. Severe COPD exacerbation causing #2 5. Congestive heart failure acute diastolic with preserved EF 6. Acute Bilateral watershed strokes 7. L1 fracture (age indeterminate) 8. Probable PVD 9. Report of heavy alcohol use. 10. L foot pain w/out fracture 11. Chronic tobacco use with Chronic obstructive pulmonary disease exacerbation. PLAN: Will get carotid USS / neurology consults for stroke Spoke with neurosurgery re: L1 fractue. Recommends MRI T and L spine Continue empiric levaquin / bronchodilator therapy Continue to wean bipap F/u MRI findings Supportive care PROPHYLAXIS: Pepcid / lovenox CRITICAL CARE TIME: >35 mins Subjective 24 Hr Interval Summary Free Text/Dictation patient doing better and now off bipap. spoke with patient and her sister and we reviewed MRI results Patient's family requesting SW consult to help with resources. Patient has a son who from acute [place] in his 40s. Exam/Review of Systems Vital Signs Vitals Vital Signs Date Time Temp Pulse Resp B/P Pulse Ox O2 Delivery O2 Flow Rate FiO2 01/31/17 16:47 84 01/31/17 15:49 98.0 20 110/70 97 01/31/17 15:29 60 01/30/17 21:00 Nasal Cannula 4.0 Intake and Output 01/30/17 01/30/17 01/31/17 15:00 23:00 07:00 Intake Total 400 ml 300 ml Balance 400 ml 300 ml Exam Constitutional: alert, frail, oriented Psych: No confusion Head: atraumatic, normocephalic Eyes: PERRL ENMT: mucosa pink and moist Neck: supple Respiratory: clear to auscultation, diminished breath sounds Cardiovascular: regular rate and rhythm Gastrointestinal: bowel sounds, non-tender, soft Extremities: cyanosis, No edema Neurological: No focal weakness Results Result Diagram: 01/31/17 0608 01/31/17 0608 Results 24 hrs Laboratory Tests Test 3/8/17 06:00 01/31/17 06:08 Arterial Blood HCO3 32.3 H Arterial Blood Base Excess 4.9 H Arterial Blood Oxygen Saturation 99.3 H Rachid Test ACCEPTAB Arterial Blood Gas Puncture Site Left Radial Arterial Blood Carboxyhemoglobin 0.9 Arterial Blood Date Drawn 01/31/2017 5:55:10 AM Arterial Blood Methemoglobin 0.5 Arterial Blood pCO2 (Temp correct) 58.7 H Arterial Blood pH (Temp corrected) 7.358 Arterial Blood pO2 (Temp corrected) 161.6 H Blood Gas A-a O2 Differential 201.6 H Blood Gas Actual Respiration Rate 17 Blood Gas IPAP/EPAP Ratio 15/07 Blood Gas Modality MASK - BIPAP Blood Gas Notified Time 01/31/2017 6:02:40 AM Blood Gas Notified Whom MH Blood Gas Respiration Rate 16.0 Blood Gas Specimen Source Blood arterial Blood Gas Temperature 37.0 FiO2 60.0 Oxyhemoglobin Percent 97.9 Total Hemoglobin 15.5 Alanine Aminotransferase (ALT/SGPT) 73 H Albumin 2.7 L Albumin/Globulin Ratio 1.00 Alkaline Phosphatase 52 Anion Gap 10 Aspartate Amino Transf (AST/SGOT) 27 B-Type Natriuretic Peptide 1380 H Basophils # 0.0 Basophils % 0.2 Blood Urea Nitrogen 19 # Calcium Level 8.4 Carbon Dioxide Level 35 H Chloride Level 98 Creatinine 0.71 Direct Bilirubin 0.00 Eosinophils # 0.0 Eosinophils % 0.4 Globulin 2.70 Glucose Level 83 Hematocrit 47.0 Hemoglobin 14.6 Indirect Bilirubin 0.3 Lymphocytes # 0.7 L Lymphocytes % 11.6 L Magnesium Level 2.0 Mean Corpuscular Hemoglobin 30.9 Mean Corpuscular Hemoglobin Concent 31.1 L Mean Corpuscular Volume 99.6 Mean Platelet Volume 10.9 H Monocytes # 0.5 Monocytes % 8.8 Neutrophils # 4.4 Neutrophils % 79.0 H Nucleated Red Blood Cells # 0.0 Nucleated Red Blood Cells % 0.0 Platelet Count 161 Potassium Level 3.5 Red Blood Count 4.72 Red Cell Distribution Width 15.0 H Sodium Level 139 Total Bilirubin 0.3 Total Protein 5.4 L White Blood Count 5.6 Medications Medications Current Medications Ondansetron HCl 4 mg 4 mg Q6H PRN IV NAUSEA AND/OR VOMITING; Start 01/29/17 at 14:30 Cefepime HCl (Maxipime 1gm/50 ml (Pmx)) 50 ml @ 100 mls/hr Q12 IVPB Last administered on 01/31/17 09:02; Admin Dose 100 MLS/HR; Start 01/29/17 at 21:00 Aspirin (Halfprin) 81 mg DAILY PO Last administered on 01/31/17 09:02; Admin Dose 81 MG; Start 01/30/17 at 09:00 Enoxaparin Sodium 30 mg 30 mg DAILY SC Last administered on 01/31/17 09:01; Admin Dose 30 MG; Start 01/31/17 at 09:00 Ferric Sodium Gluconate Complex/ Sodium Chloride (Ferrlecit/NS) 110 ml @ 100 mls/hr Q24H IVPB Last administered on 01/30/17 20:48; Admin Dose 100 MLS/HR; Start 01/30/17 at 20:00; Stop 02/01/17 at 21:05 Docusate Sodium (Colace) 100 mg BID PO Last administered on 01/31/17 09:02; Admin Dose 100 MG; Start 01/30/17 at 21:00 Famotidine (Pepcid) 20 mg BID PO ; Start 01/31/17 at 21:00 Procedures Procedures PROCEDURE: CT Chest with contrast. CLINICAL INDICATION: Respiratory failure. TECHNIQUE: CT scan of the chest with contrast was performed on a multidetector high-resolution CT scanner. The patient was scanned following the uncomplicated intravenous administration of 100 cc of Omnipaque-300 contrast. Coronal and sagittal reformatted images were obtained from the axial source images. Images were reviewed on a high-resolution PACS workstation. The total exam CTDI equals 4.89 mGy and the total exam DLP equals 206.23 mGy-cm. COMPARISON: None available FINDINGS: Bilateral small pleural effusions with compressive atelectasis at the lung bases. Hyperinflation of COPD and moderate to severe changes of centrolobular emphysema. Lungs otherwise substantially clear. Cardiomegaly. The mediastinum is unremarkable without evidence for mass or lymphadenopathy. The vascular structures of the mediastinum are normal in course and caliber. Aortic vascular calcifications and coronary artery calcifications are present. The heart size is normal without evidence for pericardial thickening or effusion. The axillary regions, subpectoral regions, and supraclavicular regions are all unremarkable. The surrounding chest wall is unremarkable. Imaging obtained through the upper abdomen reveals retroperitoneal fluid of the pancreas and small amount of fluid over the liver hand spleen. Findings may represent a manifestation of pancreatitis. The surrounding osseous structures are remarkable for an anterior wedge fracture deformity L1 loss of about 40 50% anterior and central height. There is mild retropulsion of the posterior-superior margin of the vertebral body resulting at least mild spinal stenosis at this level. These findings are otherwise age indeterminate. No osteolytic or osteoblastic lesion is detected. IMPRESSION: 1. Bilateral small pleural effusions with compressive atelectasis at the lung bases. 2. Hyperinflation of COPD and moderate to severe changes of centrolobular emphysema. 3. Age indeterminate anterior wedge fracture deformity at L1 with retropulsed fragment resulting in at least mild spinal stenosis. 4. Retroperitoneal fluid over the pancreas, possibly representing manifestation of pancreatitis. 5. Small amount of fluid is also seen over the liver and spleen. RPTAT: [facility] Physician Narda Date Time Electronically viewed and signed by Physician Narda on 01/31/2017 02:54 PROCEDURE: MR Brain without contrast. CLINICAL INDICATION: Confusion. Evaluate for CVA. TECHNIQUE: An MRI of the brain was performed on a 1.5 harriet scanner utilizing the following sequences: Sagittal T1 weighted, axial T2 weighted, axial FLAIR, coronal GRE, and axial diffusion weighted with ADC mapping. COMPARISON: None FINDINGS: Restricted effusion and associated T2 signal hyperintensity consistent with bilateral watershed distribution infarcts .. There is no evidence of intracranial hemorrhage, mass effect, or midline shift. No extra-axial fluid collections are seen. No hypointense signal abnormalities are seen on the GRE images to suggest the presence of blood degradation products. Extensive patchy and confluent T2 signal hyperintensity throughout the deep white matter and barbra compatible with sequelae of chronic microvascular ischemic changes. Mild generalized central cerebral and cerebellar volume loss. The posterior fossa contents, brainstem, seventh - eighth cranial nerve complexes, pituitary axis, orbits, paranasal sinuses, and left mastoid air cells are unremarkable. Fluid signal within the right mastoid air cells compatible with retained secretions or inflammatory change. Normal flow voids are visible in the proximal intracranial arteries and dural sinuses, indicating patency. IMPRESSION: 1. Extensive restricted diffusion and no associated T2 signal hyperintensity consistent with bilateral watershed distribution acute/subacute ischemic infarct. 2. No intracranial hemorrhage, mass effect, or shift. 3. Extensive chronic microvascular ischemic changes in the deep white matter and mild generalized central cerebellar and cerebral volume loss. EARLINE WELLS Jan 31, 2017 17:09
--- NOTE | 2017-01-31 17:44 | RADRPT ---
PROCEDURE: US carotid arteries. CLINICAL INDICATION: Dizziness. Acute cerebrovascular accident. TECHNIQUE: Multiple sonographic images of the carotid arteries and vertebral arteries were obtaine d utilizing quinn scale, duplex, and color-flow imaging. The images were reviewed on a PACS workstati on. COMPARISON: No prior studies are available for comparison. FINDINGS: Evaluation of the right carotid bifurcation region reveals mild atherosclerotic disease. Evaluation of the left carotid bifurcation region reveals mild atherosclerotic disease. There is antegrade flow within the vertebral arteries bilaterally. RIGHT CAROTID MEASUREMENTS: Common Carotid Uavibe84 (cm/sec) Internal Carotid Artery 84 (cm/sec) External Carotid Artery 102 (cm/sec) Vertebral Artery 68 (cm/sec) Internal Carotid/Common Carotid0.9 LEFT CAROTID MEASUREMENTS: Common Carotid Aivksj05 (cm/sec) Internal Carotid Artery 106 (cm/sec) External Carotid Artery 109 (cm/sec) Vertebral Artery 56 (cm/sec) Internal Carotid/Common Carotid1.1 Validated velocity measurements with angiographic measurements. Velocity criteria are extrapolated f rom diameter data as defined by the Society of Radiologists in Ultrasound Consensus Conference. Radi ology 2003; 229;340-346. This study does indirectly reference the measurement of the distal ICA noman meter as the denominator for stenosis measurement. IMPRESSION: 1. Less than 50% stenosis bilaterally in the internal carotid arteries. 2. Normal antegrade flow in the vertebral arteries bilaterally. RPTAT: QQ SRU Consensus Conference Criteria for the Diagnosis of Carotid Artery Stenosis* Degree of Stenosis, % ICA PSV, cm/sec Plaque Estimate, % ICA/CCA PSV Ratio Normal <125 None <2.0 <50 <125 <50 <2.0 50 69 125-230 >50 2.0-4.0 >70 but less than near occlusion >230 >50 <4.0 Near occlusion High, low, or undetectable Visible Variable Total occlusion Undetectable Visible, no detectable lumen Not applicable *Cartoid artery stenosis: quinn-scale and Doppler US diagnosis. Society of Radiologists in Ultrasound Consensus Conference. Radiology 2003; 229: 340-346 .Yony Carey MD, Date Time Electronically viewed and signed by .Yony Carey MD, on 01/31/2017 17:44 .R/
[2017-01-31] MEDS: FAMOTIDINE 20 MG TAB PO SCH (20:08)
[2017-01-31] MEDS: SOD FERRIC GLUC COMPLX 125 MG in SOD CHLORIDE 0.9% 100 ML IVPB SCH (20:10)
--- NOTE | 2017-01-31 20:37 | CONS ---
DATE OF ADMISSION: 01/29/2017 DATE OF CONSULTATION: 01/31/2017 TYPE OF CONSULTATION: Neurological. Thank you, Dr. Salazar, for your kind referral for evaluation of strokes. HISTORY OF PRESENT ILLNESS: The patient is a 66-year-old lady with history of COPD, hypertension, b rought up confused, found to have congestive heart failure and hypoxemia on admission, had bruise on the forehead on admission. She had MRI of the brain which shows presence of bilateral watershed in farcts in [place] radiata. Carotid ultrasound did not show any acute abnormality. The patient's ech ocardiogram shows ejection fraction of 60. The primary note's most current assessment gives severe COPD exacerbation as well. The patient is doing much better on current treatment. MEDICATIONS: Prior to admission: 1. Amlodipine. 2. Benazepril. 3. Aspirin. Currently she is on: 1. Famotidine. 2. Lovenox for DVT prevention. 3. Iron. 4. Aspirin 81. 5. Cefepime. 6. Zofran p.r.n. ALLERGIES: NONE. SOCIAL HISTORY: Cigarette smoker as well as daily alcohol consumer. She takes a couple of vodka wi th orange juice drinks at night. She states that when she does not drink, she is not getting tremul ous or any other withdrawal symptoms. No drug use. FAMILY HISTORY: Coronary artery disease. PHYSICAL EXAMINATION: VITAL SIGNS: Temperature 98.0, pulse 90, respirations 20, blood pressure 110/70. GENERAL: Not in acute distress, lying in bed. HEENT: Normocephalic head. Frontal bruise. NECK: Supple. No meningeal signs. LUNGS: Clear to auscultation bilaterally. CARDIAC: Normal cardiac rhythm and sounds. ABDOMEN: Soft, nontender. EXTREMITIES: No cyanosis, clubbing or edema. NEUROLOGIC: She is awake, alert and oriented x3 with fluent speech. CRANIAL NERVES: Intact visual santamaria bilaterally. Pupils sluggish, about 2 mm bilaterally. Extrao cular movements intact without nystagmus. Symmetrical face. Preserved facial strength and sensatio n. Tongue is in midline. Palate elevates symmetrically. Motor strength examination seemed to be p reserved in all extremities. Normal bulk, tone and strength. Sensory examination grossly intact to light touch and pain. Deep tendon reflexes 2+ upper extremities and knees, absent ankle jerks. Do wngoing toes bilaterally. Coordination preserved on [id number] testing. No dysmetria or trem or. Gait was not assessed. LABORATORY DATA: The patient's labs today show normal CBC. Comprehensive metabolic panel: Bicarbo morro 35, BNP 1300, rest within normal limits. ALT 73, AST 27. Cholesterol 78, LDL 43. Normal PT, PTT. Today's blood gas: pH 7.35, pCO2 56, PO2 161 on BiPAP. IMPRESSION: 1. Transient encephalopathy secondary to hypoxemia. 2. Congestive heart failure. 3. Chronic obstructive pulmonary disease exacerbation. 4. Bilateral watershed infarcts, likely secondary to drop of blood pressure versus hypoxemia. So f ar, I do not see any clinical abnormality, though I did not walk the patient, but otherwise, she kohli s not have any symptoms of the infarct. PT evaluation of gait is reasonable to obtain. 5. History of daily alcohol use. Watch for symptoms and signs of alcohol withdrawal. 6. The patient was found to have L1 fracture. MRI of the brain was done; report is pending. 7. Blunt head trauma with frontal bruise. No complaint of headaches. Continue current treatment. Reasonable to continue aspirin. Thank you very much for this interesting consultation. Dictated By: SHERRY MAJOR/TAB Conf#: [id number] DID#: [id number]
[2017-02-01] VITALS (12 sets, daily range): BP systolic 110–126; BP diastolic 61–74; PULSE 73–101; RESP 16–24
--- NOTE | 2017-02-01 07:19 | PN ---
DATE: 01/30/2017 CARDIOLOGY FOLLOWUP SUBJECTIVE: Discussed with the staff. Discussed with . The patient is on BiPAP overnight. He denies any chest pain or pressure to me. MEDICATIONS: Reviewed. PHYSICAL EXAMINATION: VITAL SIGNS: Temperature 98.1, heart rate of 88, blood pressure 114/63, respiration rate of 16. Sa turating 98%. HEENT: Normocephalic, atraumatic. On BiPAP. CARDIOVASCULAR: Regular rate and rhythm. PULMONARY: Mild wheezes. GASTROINTESTINAL: Soft, nontender. EXTREMITIES: No significant lower extremity edema with decreased lower extremity edema. NEUROLOGIC: Awake, responds appropriately. PSYCHIATRIC: Appears to be calm. LABORATORY: Sodium 139, potassium 3.5, BUN of 19, creatinine of 0.8, bilirubin 171, glucose of 83. ProBNP of 1380, albumin is 2.7. CT of the chest shows bilateral small pleural effusion. Hyperinflation of COPD, moderate to severe changes central lobar emphysema. MRI of the brain shows extensive restricted diffusion with no associated T2 signal hypersensitivity consistent with bilateral watershed distribution acute subacute ischemic infarct. ASSESSMENT AND PLAN: 1. Chronic obstructive pulmonary disease exacerbation. 2. Hypercapnic respiratory failure. 3. Congestive heart failure secondary to diastolic dysfunction, mostly right-sided heart failure, c urrently improved. 4. Cerebrovascular accident. 5. History of alcohol and tobacco use. 6. Hypertension. RECOMMENDATIONS: I have discontinued the blood pressure medications to avoid hypotension. Continue with the aspirin. Respiratory care as per internal medicine and pulmonary. Will ask pulmonary to evaluate the patient as well. Received 2 doses of Diamox already. Will give diuretic as needed onl y at this point. Dictated By: FRANKLYN HUSAIN MD AV/TAB Conf#: [id number] DID#: [id number] CC: EARLINE WELLS MD;*EndCC*
--- NOTE | 2017-02-01 08:14 | RADRPT ---
PROCEDURE: MR Lumbar Spine without contrast. CLINICAL INDICATION: L1 fracture. TECHNIQUE: Multiplanar multisequence MRI of the lumbar spine was performed. COMPARISON: No similar studies are submitted for comparison. CT of the chest, abdomen, and pelvis from January 30, 2017. FINDINGS: There is a normal lumbar lordosis. There is a chronic moderate L1 vertebral body wedge compression fracture with mild retropulsion of t he superior aspect causing mild spinal canal stenosis. Otherwise vertebral body heights are maintai jaylene. There is normal alignment. There is no destructive osseous lesion. There is no abnormal bone marrow edema. There is disk desiccation from L1-L2 to L5-S1. The conus medullaris is at the L1 level. The cauda equina is unremarkable. T12-L1: There is a 1 mm broad-based disk bulge with mild bilateral facet arthropathy without spinal canal stenosis. There is mild left without right foraminal stenosis. L1-L2 : There is a 1 mm broad-based disk bulge without spinal canal stenosis. There is mild bilater al foraminal stenosis. L2-L3 : There is a 2 mm broad-based disk bulge with mild bilateral facet arthropathy without spinal canal stenosis. There is mild right without left foraminal stenosis. L3-L4 : There is a 2 mm broad-based disk bulge with moderate bilateral facet arthropathy and ligamen saira flavum infolding without spinal canal stenosis. There is mild to moderate bilateral foraminal s tenosis. L4-L5 : There is a 2 mm broad-based disk bulge with mild bilateral facet arthropathy without spinal canal stenosis. There is moderate bilateral foraminal stenosis. L5-S1 : There is a 2 mm broad-based disk bulge with mild bilateral facet arthropathy without spinal canal stenosis. There is mild to moderate right with mild left foraminal stenosis. The paraspinal musculature are within normal limits. IMPRESSION: 1. Chronic moderate L1 vertebral body wedge compression fracture of mild retropulsion of the superi or aspect causing mild spinal canal stenosis. 2. No acute compression fracture or abnormal bone marrow edema. 3. Multilevel degenerative changes most pronounced at L4-L5 where there is a broad-based disk bulge with moderate bilateral foraminal stenosis. Further findings as detailed above. RPTAT: PP .Basilio John MD, MD Date Time Electronically viewed and signed by .Basilio John MD, on 02/01/2017 08:13 .F/
--- NOTE | 2017-02-01 08:18 | RADRPT ---
PROCEDURE: MR Thoracic Spine noncontrast. CLINICAL INDICATION: Back pain. TECHNIQUE: Multiplanar multisequence noncontrast MRI of the thoracic spine performed. COMPARISON: There are no similar studies submitted for comparison. FINDINGS: There is preservation of the normal thoracic kyphosis. The thoracic vertebral body heights are maintained. There is normal alignment. There is no destructive osseous lesion.There is no abnormal bone marrow edema. There is multilevel disk desiccation with mild disk space narrowing. The spinal cord is normal is signal. T1-T2: There is no disk herniation, spinal canal, or bilateral foraminal stenosis. T2-T3: There is a 1 mm broad-based disk bulge without spinal canal or bilateral foraminal stenosis. The T3-T4: There is no disk herniation, spinal canal, or bilateral foraminal stenosis. T4-T5: There is no disk herniation, spinal canal, or bilateral foraminal stenosis. T5-T6: There is no disk herniation, spinal canal, or bilateral foraminal stenosis. T6-T7: There is no disk herniation, spinal canal, or bilateral foraminal stenosis. T7-T8: There is no disk herniation, spinal canal, or bilateral foraminal stenosis. T8-T9: There is no disk herniation, spinal canal, or bilateral foraminal stenosis. T9-T10: There is no disk herniation, spinal canal, or bilateral foraminal stenosis. T10-T11: There is no disk herniation, spinal canal, or bilateral foraminal stenosis. T11-T12: There is a 1 mm broad-based disk bulge without spinal canal or bilateral foraminal stenosis . T12-L1: There is a 1 mm broad-based disk bulge with mild bilateral facet arthropathy without spinal canal stenosis. There is mild left without right foraminal stenosis. The paraspinal musculature are within normal limits. There is a moderate right and mild left pleural effusion. IMPRESSION: 1. Mild multilevel degenerative changes without spinal canal or bilateral foraminal stenosis. 2. No acute thoracic compression fracture or abnormal bone marrow edema. 3. Moderate right and mild left pleural effusion. Further findings as detailed above. RPTAT: PP .Basilio John MD, MD Date Time Electronically viewed and signed by .Basilio John MD, on 02/01/2017 08:18 .F/
[2017-02-01] MEDS: CEFEPIME 1GM/50 ML (PMX) 50 ML IVPB SCH ×2 (08:21→22:40)
[2017-02-01] MEDS: DOCUSATE SODIUM 100 MG CAP PO SCH ×2 (08:22→20:32)
[2017-02-01] MEDS: ASPIRIN (EC) 81 MG TAB PO SCH (08:22)
[2017-02-01] MEDS: FAMOTIDINE 20 MG TAB PO SCH ×2 (08:22→20:32)
[2017-02-01] MEDS: ENOXAPARIN 30 MG/0.3 ML SYG SC SCH (08:31)
--- NOTE | 2017-02-01 11:08 | PN ---
Date/Time of Note Date/Time of Note DATE: 02/01/17 TIME: 11:02 Assessment/Plan Lines/Catheters IV Catheter Type (from Nrsg): Saline Lock Urinary Cath still in place: No Assessment/Plan Assessment/Plan 1. Hypoxic encephalopathy secondary to #2 : improved 2. Acute hypoxic and hypercapnic respiratory failure with respiratory acidosiss/p bipap: improved 3. 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 4. Severe COPD exacerbation causing #2 5. Congestive heart failure acute diastolic with preserved EF and Darin pleural effusion R>L 6. 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 L1 fracture Chronic based on MRI 8. Probable PVD 9. Report of heavy alcohol use. 10. L foot pain w/out fracture 11. Chronic tobacco use PLAN: Carotid USS and Neurology recs noted Spoke with neurosurgery re: L1 fractue / reviewed MRI / cleared for PT Continue empiric levaquin / bronchodilator therapy / gentle diuresis per cardio Tobacco cessation counselling done and will continue to be reinforced throughout hospitalization. Supportive care ARU eval PROPHYLAXIS: Pepcid / lovenox Subjective 24 Hr Interval Summary Free Text/Dictation no new complaints we discussed plan of care Exam/Review of Systems Vital Signs Vitals Vital Signs Date Time Temp Pulse Resp B/P Pulse Ox O2 Delivery O2 Flow Rate FiO2 02/01/17 08:25 4.0 02/01/17 08:16 73 02/01/17 07:03 98.3 17 126/73 99 02/01/17 04:19 60 01/31/17 20:15 Nasal Cannula Intake and Output 01/31/17 01/31/17 02/01/17 15:00 23:00 07:00 Intake Total 830 ml 450 ml Output Total 600 ml Balance 230 ml 450 ml Exam Constitutional: alert, frail, oriented Psych: No confusion Head: atraumatic, normocephalic Eyes: PERRL ENMT: mucosa pink and moist Neck: supple Respiratory: clear to auscultation, diminished breath sounds Cardiovascular: regular rate and rhythm Gastrointestinal: bowel sounds, non-tender, soft Extremities: cyanosis, No edema Neurological: No focal weakness Results Result Diagram: 01/31/17 0608 01/31/17 0608 Medications Medications Current Medications Ondansetron HCl 4 mg 4 mg Q6H PRN IV NAUSEA AND/OR VOMITING; Start 01/29/17 at 14:30 Cefepime HCl (Maxipime 1gm/50 ml (Pmx)) 50 ml @ 100 mls/hr Q12 IVPB Last administered on 02/01/17 08:21; Admin Dose 100 MLS/HR; Start 01/29/17 at 21:00 Aspirin (Halfprin) 81 mg DAILY PO Last administered on 02/01/17 08:22; Admin Dose 81 MG; Start 01/30/17 at 09:00 Enoxaparin Sodium 30 mg 30 mg DAILY SC Last administered on 02/01/17 08:31; Admin Dose 30 MG; Start 01/31/17 at 09:00 Ferric Sodium Gluconate Complex/ Sodium Chloride (Ferrlecit/NS) 110 ml @ 100 mls/hr Q24H IVPB Last administered on 01/31/17 20:10; Admin Dose 100 MLS/HR; Start 01/30/17 at 20:00; Stop 02/01/17 at 21:05 Docusate Sodium (Colace) 100 mg BID PO Last administered on 02/01/17 08:22; Admin Dose 100 MG; Start 01/30/17 at 21:00 Famotidine (Pepcid) 20 mg BID PO Last administered on 02/01/17 08:22; Admin Dose 20 MG; Start 01/31/17 at 21:00 Procedures Procedures PROCEDURE: US carotid arteries. CLINICAL INDICATION: Dizziness. Acute cerebrovascular accident. TECHNIQUE: Multiple sonographic images of the carotid arteries and vertebral arteries were obtained utilizing quinn scale, duplex, and color-flow imaging. The images were reviewed on a PACS workstation. COMPARISON: No prior studies are available for comparison. FINDINGS: Evaluation of the right carotid bifurcation region reveals mild atherosclerotic disease. Evaluation of the left carotid bifurcation region reveals mild atherosclerotic disease. There is antegrade flow within the vertebral arteries bilaterally. RIGHT CAROTID MEASUREMENTS: Common Carotid Artery 95 (cm/sec) Internal Carotid Artery 84 (cm/sec) External Carotid Artery 102 (cm/sec) Vertebral Artery 68 (cm/sec) Internal Carotid/Common Carotid 0.9 LEFT CAROTID MEASUREMENTS: Common Carotid Artery 94 (cm/sec) Internal Carotid Artery 106 (cm/sec) External Carotid Artery 109 (cm/sec) Vertebral Artery 56 (cm/sec) Internal Carotid/Common Carotid 1.1 Validated velocity measurements with angiographic measurements. Velocity criteria are extrapolated from diameter data as defined by the Society of Radiologists in Ultrasound Consensus Conference. Radiology 2003; 229;340-346. This study does indirectly reference the measurement of the distal ICA diameter as the denominator for stenosis measurement. IMPRESSION: 1. Less than 50% stenosis bilaterally in the internal carotid arteries. 2. Normal antegrade flow in the vertebral arteries bilaterally. RPTAT: QQ SRU Consensus Conference Criteria for the Diagnosis of Carotid Artery Stenosis* Degree of Stenosis, % ICA PSV, cm/sec Plaque Estimate, % ICA/CCA PSV Ratio Normal <125 None <2.0 <50 <125 <50 <2.0 50 69 125-230 >50 2.0-4.0 >70 but less than near occlusion >230 >50 <4.0 Near occlusion High, low, or undetectable Visible Variable Total occlusion Undetectable Visible, no detectable lumen Not applicable *Cartoid artery stenosis: quinn-scale and Doppler US diagnosis. Society of Radiologists in Ultrasound Consensus Conference. Radiology 2003; 229: 340-346 .Yony Carey MD, MD Date Time Electronically viewed and signed by .Yony Carey MD, MD on 01/31/2017 17:44 .R/ CC: EARLINE WELLS PROCEDURE: MR Lumbar Spine without contrast. CLINICAL INDICATION: L1 fracture. TECHNIQUE: Multiplanar multisequence MRI of the lumbar spine was performed. COMPARISON: No similar studies are submitted for comparison. CT of the chest, abdomen, and pelvis from January 30, 2017. FINDINGS: There is a normal lumbar lordosis. There is a chronic moderate L1 vertebral body wedge compression fracture with mild retropulsion of the superior aspect causing mild spinal canal stenosis. Otherwise vertebral body heights are maintained. There is normal alignment. There is no destructive osseous lesion. There is no abnormal bone marrow edema. There is disk desiccation from L1-L2 to L5-S1. The conus medullaris is at the L1 level. The cauda equina is unremarkable. T12-L1: There is a 1 mm broad-based disk bulge with mild bilateral facet arthropathy without spinal canal stenosis. There is mild left without right foraminal stenosis. L1-L2 : There is a 1 mm broad-based disk bulge without spinal canal stenosis. There is mild bilateral foraminal stenosis. L2-L3 : There is a 2 mm broad-based disk bulge with mild bilateral facet arthropathy without spinal canal stenosis. There is mild right without left foraminal stenosis. L3-L4 : There is a 2 mm broad-based disk bulge with moderate bilateral facet arthropathy and ligamentum flavum infolding without spinal canal stenosis. There is mild to moderate bilateral foraminal stenosis. L4-L5 : There is a 2 mm broad-based disk bulge with mild bilateral facet arthropathy without spinal canal stenosis. There is moderate bilateral foraminal stenosis. L5-S1 : There is a 2 mm broad-based disk bulge with mild bilateral facet arthropathy without spinal canal stenosis. There is mild to moderate right with mild left foraminal stenosis. The paraspinal musculature are within normal limits. IMPRESSION: 1. Chronic moderate L1 vertebral body wedge compression fracture of mild retropulsion of the superior aspect causing mild spinal canal stenosis. 2. No acute compression fracture or abnormal bone marrow edema. 3. Multilevel degenerative changes most pronounced at L4-L5 where there is a broad-based disk bulge with moderate bilateral foraminal stenosis. Further findings as detailed above. RPTAT: PP .Basilio John MD, Date Time Electronically viewed and signed by .Basilio John MD, MD on 02/01/2017 08:13 .F/ CC: EARLINE WELLS. ROCEDURE: MR Thoracic Spine noncontrast. CLINICAL INDICATION: Back pain. TECHNIQUE: Multiplanar multisequence noncontrast MRI of the thoracic spine performed. COMPARISON: There are no similar studies submitted for comparison. FINDINGS: There is preservation of the normal thoracic kyphosis. The thoracic vertebral body heights are maintained. There is normal alignment. There is no destructive osseous lesion.There is no abnormal bone marrow edema. There is multilevel disk desiccation with mild disk space narrowing. The spinal cord is normal is signal. T1-T2: There is no disk herniation, spinal canal, or bilateral foraminal stenosis. T2-T3: There is a 1 mm broad-based disk bulge without spinal canal or bilateral foraminal stenosis. The T3-T4: There is no disk herniation, spinal canal, or bilateral foraminal stenosis. T4-T5: There is no disk herniation, spinal canal, or bilateral foraminal stenosis. T5-T6: There is no disk herniation, spinal canal, or bilateral foraminal stenosis. T6-T7: There is no disk herniation, spinal canal, or bilateral foraminal stenosis. T7-T8: There is no disk herniation, spinal canal, or bilateral foraminal stenosis. T8-T9: There is no disk herniation, spinal canal, or bilateral foraminal stenosis. T9-T10: There is no disk herniation, spinal canal, or bilateral foraminal stenosis. T10-T11: There is no disk herniation, spinal canal, or bilateral foraminal stenosis. T11-T12: There is a 1 mm broad-based disk bulge without spinal canal or bilateral foraminal stenosis. T12-L1: There is a 1 mm broad-based disk bulge with mild bilateral facet arthropathy without spinal canal stenosis. There is mild left without right foraminal stenosis. The paraspinal musculature are within normal limits. There is a moderate right and mild left pleural effusion. IMPRESSION: 1. Mild multilevel degenerative changes without spinal canal or bilateral foraminal stenosis. 2. No acute thoracic compression fracture or abnormal bone marrow edema. 3. Moderate right and mild left pleural effusion. Further findings as detailed above. RPTAT: PP .Basilio John MD, MD Date Time Electronically viewed and signed by .Basilio John MD, MD on 02/01/2017 08:18 .F/ CC: EARLINE WELLS BOLATITO M. Feb 01, 2017 11:08
--- NOTE | 2017-02-01 11:25 | CONS ---
Date/Time of Note Date/Time of Note DATE: 02/01/17 TIME: 11:23 Assessment/Plan Assessment/Plan Additional Assessment/Plan Assessment recommendations; 1. Patient admitted for COPD exacerbation with type II respiratory failure currently doing well. 2. Acute bronchitis. 3. History of hypertension. Continue current treatment. Add Solu-Medrol 40 mg IV every 8 hours. Consultation Date/Type/Reason Admit Date/Time Jan 29, 2017 at 14:08 Initial Consult Date 01/31/17 Type of Consultation: Pulmonary 24 HR Interval Summary Free Text/Dictation Patient's condition is stable. Still complains of cough with scant sputum production. Complains of shortness of breath upon minimal exertion. Denies any fever, chills. Any nausea vomiting. General exam; elderly lady, currently in no distress, awake and alert. Exam/Review of Systems Vital Signs Vitals Vital Signs Date Time Temp Pulse Resp B/P Pulse Ox O2 Delivery O2 Flow Rate FiO2 02/01/17 11:07 98.5 100 24 124/74 90 02/01/17 08:25 4.0 02/01/17 04:19 60 01/31/17 20:15 Nasal Cannula Intake and Output 01/31/17 01/31/17 02/01/17 15:00 23:00 07:00 Intake Total 830 ml 450 ml Output Total 600 ml Balance 230 ml 450 ml Exam HEENT exam; supple neck, no JVD. No lymphadenopathy. Midline trachea. No thyromegaly. No neck masses. Chest examination; poor breath sounds bilaterally with mild wheezing. S1-S2 audible, no murmurs. Regular rhythm. Abdomen examination; soft, nontender. Bowel sounds audible. Extremity examination; no peripheral edema. Next [employer]MINOLOGY examination; no focal deficit. Results Result Diagram: 01/31/17 0608 01/31/17 0608 Medications Medications Current Medications Ondansetron HCl 4 mg 4 mg Q6H PRN IV NAUSEA AND/OR VOMITING; Start 01/29/17 at 14:30 Cefepime HCl (Maxipime 1gm/50 ml (Pmx)) 50 ml @ 100 mls/hr Q12 IVPB Last administered on 02/01/17 08:21; Admin Dose 100 MLS/HR; Start 01/29/17 at 21:00 Aspirin (Halfprin) 81 mg DAILY PO Last administered on 02/01/17 08:22; Admin Dose 81 MG; Start 01/30/17 at 09:00 Enoxaparin Sodium 30 mg 30 mg DAILY SC Last administered on 02/01/17 08:31; Admin Dose 30 MG; Start 01/31/17 at 09:00 Ferric Sodium Gluconate Complex/ Sodium Chloride (Ferrlecit/NS) 110 ml @ 100 mls/hr Q24H IVPB Last administered on 01/31/17 20:10; Admin Dose 100 MLS/HR; Start 01/30/17 at 20:00; Stop 02/01/17 at 21:05 Docusate Sodium (Colace) 100 mg BID PO Last administered on 02/01/17 08:22; Admin Dose 100 MG; Start 01/30/17 at 21:00 Famotidine (Pepcid) 20 mg BID PO Last administered on 02/01/17 08:22; Admin Dose 20 MG; Start 01/31/17 at 21:00 OFELIA PINA Feb 01, 2017 11:25
[2017-02-01 12:23] LABS: ADD SCAN DIFF NO
[2017-02-01 12:29] LABS: ABNORMAL IP MESSAGE 1; BASOPHILS % 0.2 % (0.0-2.0); EOSINOPHILS % 0.5 % (0.0-7.0); HEMATOCRIT 49.2 % (37.0-47.0); HEMOGLOBIN 14.9 g/dl (12.0-16.0); LYMPHOCYTES # 0.4 10^3/ul (0.8-2.9); LYMPHOCYTES % 6.9 % (15.0-51.0); MEAN CORPUSCULAR HEMOGLOBIN 30.5 pg (29.0-33.0); MEAN CORPUSCULAR HGB CONC 30.3 g/dl (32.0-37.0); MEAN CORPUSCULAR VOLUME 100.6 fl (82.0-101.0); MEAN PLATELET VOLUME 10.4 fl (7.4-10.4); MONOCYTE # 0.5 10^3/ul (0.3-0.9); MONOCYTES % 8.2 % (0.0-11.0); NEUTROPHIL # 4.6 10^3/ul (1.6-7.5); NEUTROPHILS % 83.8 % (39.0-77.0); PLATELET COUNT 178 10^3/UL (140-415); RED BLOOD COUNT 4.89 10^6/ul (4.20-5.40); RED CELL DISTRIBUTION WIDTH 15.3 % (11.5-14.5); WHITE BLOOD COUNT 5.5 10^3/ul (4.8-10.8)
[2017-02-01 12:46] LABS: CALCIUM 8.7 mg/dl (8.4-10.2); CREATININE 0.71 mg/dl (0.44-1.00)
[2017-02-01] MEDS: METHYLPREDNISOLONE 40 MG INJ IV SCH ×2 (14:02→22:40)
[2017-02-01] MEDS: NICOTINE (21 MG/24 HR) PATCH TRANSDERM SCH (17:53)
[2017-02-01] MEDS: SOD FERRIC GLUC COMPLX 125 MG in SOD CHLORIDE 0.9% 100 ML IVPB SCH (20:31)
--- NOTE | 2017-02-01 21:51 | PN ---
DATE: 02/01/2017 CARDIOLOGY FOLLOWUP SUBJECTIVE: Discussed with the staff ____. The patient remains in sinus rhythm. ____has improved. No chest pain or pressure. On BiPAP overnight. Oxygen has improved now. MEDICATIONS: Reviewed. PHYSICAL EXAMINATION: VITAL SIGNS: Temperature 98.3, heart rate of 73, blood pressure 126/73, respiration rate of 16, sat urating 99% on 4 liters oxygen. HEENT: Normocephalic, atraumatic. CARDIOVASCULAR: Regular rate and rhythm, systolic murmur. PULMONARY: Mild wheezes, ____. GASTROINTESTINAL: Soft, nontender. EXTREMITIES: No significant edema. NEUROLOGIC: Awake and alert, responds appropriately. PSYCHIATRIC: Appears to be calm and pleasant. ASSESSMENT AND PLAN: 1. Hypoxemia hypercapnic respiratory failure. 2. Severe chronic obstructive pulmonary disease. 3. History of hypertension. 4. Mild fluid overload and congestive heart failure secondary to above, currently has significantly improved and does not appear to be fluid overloaded. RECOMMENDATIONS: We will continue with the current cardiac care. Diuresis as needed. Follow up [facility] pulmonary recommendations. Dictated By: FRANKLYN HUSAIN MD AV/NTS Conf#: [id number] DID#: [id number] CC: EARLINE WELLS MD;*End*
[2017-02-02] VITALS (8 sets, daily range): BP systolic 139–148; BP diastolic 69–80; PULSE 84–107; RESP 17–20
[2017-02-02] MEDS: METHYLPREDNISOLONE 40 MG INJ IV SCH ×2 (05:14→13:49)
[2017-02-02] MEDS: FAMOTIDINE 20 MG TAB PO SCH (09:00)
[2017-02-02] MEDS: DOCUSATE SODIUM 100 MG CAP PO SCH (09:00)
[2017-02-02] MEDS: CEFEPIME 1GM/50 ML (PMX) 50 ML IVPB SCH (09:22)
[2017-02-02] MEDS: ASPIRIN (EC) 81 MG TAB PO SCH (09:22)
[2017-02-02] MEDS: NICOTINE (21 MG/24 HR) PATCH TRANSDERM SCH (09:23)
--- NOTE | 2017-02-02 09:38 | PN ---
DATE: 02/02/2017 CARDIOLOGY FOLLOWUP SUBJECTIVE: Discussed with the staff. Rhythm strip reviewed. The patient remains in sinus rhythm. No chest pain or pressure. She still has shortness of breath. Confusion has resolved now. Still occasional wheezing. MEDICATIONS: Reviewed as per medical reconciliation, personally reviewed. PHYSICAL EXAMINATION: VITAL SIGNS: Temperature 98.1, heart rate of 84, blood pressure 145/80, respiratory rate of 19, sat urating 93%. HEENT: Normocephalic, atraumatic. Pupils are equal. CARDIOVASCULAR: Regular rate and rhythm, systolic murmur. PULMONARY: Positive for wheezes. GASTROINTESTINAL: Soft, nontender. EXTREMITIES: Trivial edema. NEUROLOGIC: Awake, responds appropriately. PSYCHIATRIC: Appears to be calm and pleasant. LABORATORY DATA: WBC of 5.5, hemoglobin 14.9, platelets 178. Sodium 139, potassium 4, BUN of 14, c reatinine 0.71, CO2 of 34 as of yesterday. ASSESSMENT AND PLAN: 1. Hypoxemic, hypercapnic respiratory failure. 2. Severe chronic obstructive pulmonary disease exacerbation. 3. Congestive heart failure and fluid overload secondary to diastolic dysfunction and mostly pulmon [place] disease. 4. History of hypertension, currently stable. 5. Possible cerebrovascular accident. RECOMMENDATIONS: We will allow for permissive hypertension for now. Solu-Medrol as per pulmonary r ecommendations. GI prophylaxis to be continued. Diuresis as needed. Currently, appears to be stab le. Dictated By: FRANKLYN HUSAIN MD AV/TAB Conf#: [id number] DID#: [id number] CC: EARLINE WELLS MD;*EndCC*
[2017-02-02] MEDS: ENOXAPARIN 30 MG/0.3 ML SYG SC SCH (09:52)
--- NOTE | 2017-02-02 12:02 | CONS ---
Date/Time of Note Date/Time of Note DATE: 02/02/17 TIME: 11:59 Assessment/Plan Assessment/Plan Additional Assessment/Plan Assessment recommendations; 1. Patient admitted for severe COPD exacerbation with hypercapnic respiratory failure doing very well now. 2. Acute bronchitis with clinical improvement. 3. History of hypertension. Next Patient is adamant in leaving the hospital today. I did discuss with her that it is imperative that we repeat an ABG in 24 hours to see about the status of her high CO2 level, the patient is simply not interested. This time I would recommend discharging her on Medrol Dosepak in conjunction with either Advair or Dulera to be used on a regular basis with DuoNeb via nebulizer 4 times daily. The patient was ambulated related in the hallway and her O2 saturation is adequate and would not qualify her for home oxygen. Patient was o counseled to quit smoking. She is going to follow-up with her primary care doctor in a few days time. Consultation Date/Type/Reason Admit Date/Time Jan 29, 2017 at 14:08 Initial Consult Date 01/31/17 Type of Consultation: Pulmonary 24 HR Interval Summary Free Text/Dictation Patient condition stable. Still complains of mild chest congestion. No shortness of breath is significantly improved. General exam; elderly lady, currently in no distress awake and alert. Exam/Review of Systems Vital Signs Vitals Vital Signs Date Time Temp Pulse Resp B/P Pulse Ox O2 Delivery O2 Flow Rate FiO2 02/02/17 11:13 98.1 103 17 139/69 93 02/02/17 08:58 Nasal Cannula 3.0 02/01/17 04:19 60 Intake and Output 02/01/17 02/01/17 02/02/17 15:00 23:00 07:00 Intake Total 860 ml 750 ml Balance 860 ml 750 ml Exam HEENT exam; supple neck, no JVD. No lymphadenopathy. Midline trachea. No thyromegaly. Chest examination; poor breath sound bilaterally with very mild expiratory wheezing. S1-S2 audible, no murmurs. Regular rhythm. Abdomen examination; is benign. Extremity exam is; no peripheral edema. [employer] examination; no focal deficit. Results Result Diagram: 02/01/17 1150 02/01/17 1150 Medications Medications Current Medications Ondansetron HCl 4 mg 4 mg Q6H PRN IV NAUSEA AND/OR VOMITING; Start 01/29/17 at 14:30 Cefepime HCl (Maxipime 1gm/50 ml (Pmx)) 50 ml @ 100 mls/hr Q12 IVPB Last administered on 02/02/17 09:22; Admin Dose 100 MLS/HR; Start 01/29/17 at 21:00 Aspirin (Halfprin) 81 mg DAILY PO Last administered on 02/02/17 09:22; Admin Dose 81 MG; Start 01/30/17 at 09:00 Enoxaparin Sodium (Lovenox) 30 mg DAILY SC Last administered on 02/02/17 09:52 ; Admin Dose 30 MG; Start 01/31/17 at 09:00 Docusate Sodium (Colace) 100 mg BID PO Last administered on 02/01/17 08:22; Admin Dose 100 MG; Start 01/30/17 at 21:00 Famotidine (Pepcid) 20 mg BID PO Last administered on 02/01/17 20:32; Admin Dose 20 MG; Start 01/31/17 at 21:00 Methylprednisolone Sodium Succinate (Solu-Medrol) 40 mg Q8 IV Last administered on 02/02/17 05:14; Admin Dose 40 MG; Start 02/01/17 at 14:00 Nicotine (Nicoderm 21 Mg/ 24hr) 1 patch DAILY TRANSDERM Last administered on 09:23; Admin Dose 1 PATCH; Start 02/01/17 at 15:30 OFELIA PINA Feb 02, 2017 12:02
[2017-02-02] MEDS ORDERED: ALBUTEROL/IPRATROPIUM (NEB) 3 ML AMP HHN SCH (14:00)
--- NOTE | 2017-02-02 14:03 | PN ---
Date/Time of Note Date/Time of Note DATE: 02/02/17 TIME: 14:00 Assessment/Plan VTE Prophylaxis VTE Prophylaxis Intervention: LMWH Lines/Catheters IV Catheter Type (from Nrs): Saline Lock Urinary Cath still in place: No Assessment/Plan Assessment/Plan 1. Hypoxic encephalopathy secondary to #2 : resolved 2. Acute hypoxic and hypercapnic respiratory failure with respiratory acidosis s/p bipap: improved 3. Chronic erythrocytosis secondary to chronic lung disease with chronic hypoxia: improved 4. Severe COPD exacerbation causing #2: improving 5. Congestive heart failure acute diastolic with preserved EF and Darin pleural effusion R>L: improved 6. 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 L1 fracture Chronic based on MRI 8. Probable PVD 9. Report of heavy alcohol use. 10. L foot pain w/out fracture 11. Chronic tobacco use PLAN: Patient cleared by PT, but still has high o2 requirements and does not qualify for home o2 add inhaled steroids. Carotid USS and Neurology recs noted Spoke with neurosurgery re: L1 fracture / reviewed MRI / cleared for PT Continue empiric levaquin / bronchodilator therapy / gentle diuresis per cardio Tobacco cessation counselling done and will continue to be reinforced throughout hospitalization. Supportive care Patient not stable for d/c at this time, but might leave AMA PROPHYLAXIS: Pepcid / lovenox Subjective 24 Hr Interval Summary Free Text/Dictation patient still requiring high flow o2 but wants to go home Exam/Review of Systems Vital Signs Vitals Vital Signs Date Time Temp Pulse Resp B/P Pulse Ox O2 Delivery O2 Flow Rate FiO2 02/02/17 12:27 107 02/02/17 11:13 98.1 17 139/69 93 02/02/17 08:58 Nasal Cannula 3.0 02/01/17 04:19 60 Intake and Output 02/01/17 02/01/17 02/02/17 15:00 23:00 07:00 Intake Total 860 ml 750 ml Balance 860 ml 750 ml Exam Constitutional: alert, frail, oriented, other (looks older than stated age) Psych: other (cranky) Head: normocephalic Eyes: PERRL ENMT: mucosa pink and moist Respiratory: diminished breath sounds, wheezing, No crackles/rales Cardiovascular: regular rate and rhythm, No murmurs/extra sounds Gastrointestinal: bowel sounds, non-tender, soft Extremities: No edema Neurological: nl mental status, No confused Results Result Diagram: 02/01/17 1150 02/01/17 1150 Medications Medications Current Medications Ondansetron HCl 4 mg 4 mg Q6H PRN IV NAUSEA AND/OR VOMITING; Start 01/29/17 at 14:30 Cefepime HCl (Maxipime 1gm/50 ml (Pmx)) 50 ml @ 100 mls/hr Q12 IVPB Last administered on 02/02/17 09:22; Admin Dose 100 MLS/HR; Start 01/29/17 at 21:00 Aspirin (Halfprin) 81 mg DAILY PO Last administered on 02/02/17 09:22; Admin Dose 81 MG; Start 01/30/17 at 09:00 Enoxaparin Sodium (Lovenox) 30 mg DAILY SC Last administered on 02/02/17 09:52 ; Admin Dose 30 MG; Start 01/31/17 at 09:00 Docusate Sodium (Colace) 100 mg BID PO Last administered on 02/01/17 08:22; Admin Dose 100 MG; Start 01/30/17 at 21:00 Famotidine (Pepcid) 20 mg BID PO Last administered on 02/01/17 20:32; Admin Dose 20 MG; Start 01/31/17 at 21:00 Methylprednisolone Sodium Succinate (Solu-Medrol) 40 mg Q8 IV Last administered on 02/02/17 13:49; Admin Dose 40 MG; Start 02/01/17 at 14:00 Nicotine (Nicoderm 21 Mg/ 24hr) 1 patch DAILY TRANSDERM Last administered on 09:23; Admin Dose 1 PATCH; Start 02/01/17 at 15:30 Salmeterol Xinafoate/ Fluticasone (Advair 250/50 Diskus) 1 inh BID INH ; Start 02/02/17 at 14:00; Status EARLINE BATRES Feb 02, 2017 14:03
[2017-02-02] MEDS ORDERED: DOCU-216 PO (14:04)
[2017-02-02] MEDS ORDERED: ASPI-664 PO (14:04)
[2017-02-02] MEDS ORDERED: ADV25050 INH (14:07)
[2017-02-02] MEDS ORDERED: AMOX1TAB10 PO (14:07)
[2017-02-02] MEDS ORDERED: IPRA3AMP INHALATION (14:07)
[2017-02-02] MEDS ORDERED: PRED10TA PO (14:07)
[2017-02-02] MEDS ORDERED: SALMETEROL/FLUTICASONE 250/50 INHA INH SCH (15:00)
[2017-02-02] MEDS ORDERED: NEBU-113 MC (15:23)
== END 2017-02-02 15:35 | disposition left against medical advice (07) | DRG 189 ==
LOC: E/R 11:54 → ICU 14:08 → TEL 01-30 05:51
PROVIDERS: ADMIT Family Medicine; ATTEND Family Medicine
PROC: 5A09357 Assistance with Respiratory Ventilation, Less than 24 Consecutive Hours, Continuous Positive Airway Pressure (ICD-10-PCS; principal; 2017-01-29)
DX: J96.01 Acute respiratory failure with hypoxia (principal); I63.8 Other cerebral infarction; G93.49 Other encephalopathy; I50.33 Acute on chronic diastolic (congestive) heart failure; J18.9 Pneumonia, unspecified organism; E87.2 Acidosis; S09.90XA Unspecified injury of head, initial encounter; I11.0 Hypertensive heart disease with heart failure; J44.0 Chronic obstructive pulmonary disease with (acute) lower respiratory infection; J44.1 Chronic obstructive pulmonary disease with (acute) exacerbation; J96.02 Acute respiratory failure with hypercapnia; D75.1 Secondary polycythemia; E87.5 Hyperkalemia; Z72.0 Tobacco use; I73.9 Peripheral vascular disease, unspecified; M79.672 Pain in left foot; W19.XXXA Unspecified fall, initial encounter; J20.9 Acute bronchitis, unspecified; Z72.89 Other problems related to lifestyle; M84.48XS Pathological fracture, other site, sequela
CPT/HCPCS: 36415; 36600; 70450; 70551; 71010; 71260; 72146; 72148; 73630; 80048; 80053; 80061; 82550; 82553; 82803; 83036; 83540; 83605; 83735; 83880; 84439; 84443; 84484; 85025; 85610; 85730; 87040; 87081; 93005; 93306; 93880; 94640; 94660; 94664; 96374; 96375; 97162; J1120; J0692; J1650; J1940; J1956; J2916; J2920; Q9967